=== PATIENT | female | born 1960 | race American Indian/Alaskan Native ===

== ENCOUNTER 2020-07-05 06:18 | Outpatient (REF) | payer OTHER, SELFPAY ==
[2020-07-05 12:16] LABS: Alanine Aminotransferase < 6 U/L (0-31); Aspartate Amino Transferase 16 U/L (5-31); Cholesterol 227 mg/dL; HDL Cholesterol 93 mg/dL; LDL Cholesterol Calculated 121 mg/dl; Triglycerides 67 mg/dL
[2020-07-05 12:19] LABS: Vitamin D 25-OH Total 24.2 ng/mL (>30)
== END 2020-07-05 06:19 | disposition home or self-care (01) ==
LOC: HO.HMGCLDS 06:18
PROVIDERS: PCP Internal Medicine; Visit Provider Internal Medicine
DX: E78.5 Hyperlipidemia, unspecified (principal); Z78.0 Asymptomatic menopausal state
CPT/HCPCS: 36415; 80061; 82306; 84450; 84460

== ENCOUNTER 2021-07-12 14:30 | Outpatient (RCR) | payer OTHER, SELFPAY ==
[2021-07-10 12:50] VITALS: BP 108/58; PULSE 78; O2SAT 95
--- NOTE | 2021-07-10 13:58 | MHC.PT.EP ---
[facility] [place] Office [place] Office [place] Office [address] Jorge Luis Laguerre [address] [phone] F: [phone] F: [phone] F: [phone] F: [phone] Physical Therapy Plan of Care Date of Evaluation: Date of Surgery: Diagnosis: This is a 60 yo female presenting to skilled PT with a script for vertigo Assessment: This is a 60 yo female presenting to skilled PT with a script for vertigo. Patient reports that her symptoms started 2 years ago, she went to the ER was given medication and symptoms resolved. Then she had room spinning symptoms back in May but cancelled eval as she was feeling better (also went to ER and had medication again). She reports that she had symptoms that began again 3 days. She has been taking meclizine. She reports that she has ringing and sees spots when she wakes up in the middle of the night (states that she gets up slowly). Examination shows normal oculomotor tests except for horizontal saccades, ? + VOR, (-) VBI B. She demos WFL cervical AROM. She was ? (+) for BPPV with niall-hallpike and R kash maneuver which was improved s/p tx (time to reduce symptoms improved). She did not have a definite nystagmus that was obvious to the naked eye but due to symptoms patient was instructed in kash maneuver. PT did not have enough time to assess balance at eval but plans to do so next session. S/S consistent with R PC BPPV and would benefit from PT 2x/wk for 4wks to address impairments, implement HEP and optimize functional mobility. Frequency and Duration: The patient will be seen 2x/wk for 4wks Short Term Goals: Penitentiary Goals: I in HEP No nystagmus or symptoms in any testing positions No LOB noted and normal scores on balance tests Return to work in full Treatment Plan: Modalities to reduce pain, spasms and effusion. Manual therapy to restore motion and function. Therapeutic exercise to improve strength and flexibility. Neuromuscular re-education for posture and balance. Therapeutic activities to return to functional activities of daily living. Electronically signed by: Krystle Dubuc, PT Please sign and return to therapist. Thank you for your referral.
--- NOTE | 2021-08-10 09:22 | MHC.PT.DC ---
[facility] [place] Office [place] Office [place] Office [address] Jorge Luis Laguerre [address] [phone] F: [phone] F: [phone] F: [phone] F: [phone] Physical Therapy Discharge Report Diagnosis: This is a 60 yo female presenting to skilled PT with a script for vertigo Date of Surgery: Date of Evaluation: 07/10/21 Date of Discharge: 08/10/21 Treatments to Date: 2 Cancellations to Date: 0 No Shows to Date: 0 Discharge Status: Achieved Goals Improved Function Discharge Summary: Patient was negative in all 6 canals for nystagmus and symptoms. Educated on holding chart open for 30 days and then DC. Educated her to call our office if patient's symptoms returned. Patient with good understanding of vestibular symptoms and PT POC. DC at this time after 30 day hold. Electronically signed by: Krystle Mcdonough PT Please sign and return to therapist. Thank you for your referral.
== END 2021-08-10 09:22 | disposition home or self-care (01) ==
LOC: HO.PTCHIC 14:30
PROVIDERS: PCP Internal Medicine; Visit Provider Internal Medicine
DX: R42 Dizziness and giddiness (principal)
CPT/HCPCS: 95992; 97140; 97162

== ENCOUNTER 2021-08-07 09:05 | Outpatient (REF) | payer OTHER, SELFPAY ==
[2021-08-07 11:43] LABS: MANUAL DIFF FLAG NO
[2021-08-07 12:10] LABS: Basophils Percent Auto 0.7 % (0-2); Eosinophils Absolute Auto 0.1 X10*3/uL (0.0-0.4); Eosinophils Percent Auto 1.1 % (0-4); Hematocrit 39.9 % (37.0-47.0); Hemoglobin 12.5 g/dl (12.0-16.0); Imm Gran Abs Auto 0.02 X10*3/uL (0.00-0.03); Imm Gran Pct Auto 0.5 % (0.0-0.4); Lymphocytes Absolute Auto 1.4 X10*3/uL (1.2-4.9); Lymphocytes Percent Auto 31.9 % (20-40); Mean Corpuscular HGB Conc 31.3 g/dl (31.0-35.0); Mean Corpuscular Hemoglobin 28.7 pg (27.0-33.0); Mean Corpuscular Volume 91.5 fL (80.0-98.0); Mean Platelet Volume 10.6 fL (9.4-12.3); Monocytes Absolute Auto 0.3 X10*3/uL (0.1-1.2); Monocytes Percent Auto 6.7 % (2-11); Neutrophils Absolute Auto 2.6 x10*3/uL (2.0-8.3); Neutrophils Percent Auto 59.1 % (45-73); Platelet Count 176 X10*3/uL (160-400); Red Blood Count 4.36 X10*6/uL (4.20-5.50); Red Cell Distribution Width 12.4 % (11.0-16.0); White Blood Count 4.4 X10*3/uL (4.8-10.8)
[2021-08-07 12:20] LABS: Alanine Aminotransferase 7 U/L (0-31); Anion Gap 10 (12-20); Aspartate Amino Transferase 17 U/L (5-31); Blood Urea Nitrogen 12 mg/dL (9-16); Calcium 9.3 mg/dL (8.4-10.2); Carbon Dioxide 31 mmol/L (22-29); Chloride 104 mmol/L (96-108); Cholesterol 281 mg/dL; Estimated Glomerular Filt Rate > 60; Glucose Fasting 83 mg/dL (60-99); HDL Cholesterol 77 mg/dL; Iron 75 mcg/dL (30-160); LDL Cholesterol Calculated 188 mg/dl; Percent Iron Saturation 22 % (15-50); Potassium 4.6 mmol/L (3.3-5.1); Sodium 140 mmol/L (135-145); Total Iron Binding Capacity 342 mcg/dL (228-428); Triglycerides 84 mg/dL; Unsaturated Iron Binding 267 ug/dL
[2021-08-07 12:31] LABS: Vitamin D 25-OH Total 34.7 ng/mL (>30)
[2021-08-07 12:38] LABS: Folate 7.8 ng/mL (> or = 4.0); Vitamin B12 233 pg/mL (200-900)
== END 2021-08-07 09:06 | disposition home or self-care (01) ==
LOC: HO.HMGCLDS 09:05
PROVIDERS: PCP Internal Medicine; Visit Provider Internal Medicine
DX: D64.9 Anemia, unspecified (principal); E55.9 Vitamin D deficiency, unspecified; E78.5 Hyperlipidemia, unspecified; R42 Dizziness and giddiness
CPT/HCPCS: 36415; 80048; 80061; 82306; 82607; 82746; 83540; 84450; 84460; 85025

== ENCOUNTER 2021-09-24 16:30 | Outpatient (REF) | payer OTHER, SELFPAY ==
[2021-09-26 12:58] LABS: H Pylori Breath Test Positive (Negative)
== END 2021-09-24 16:31 | disposition home or self-care (01) ==
LOC: HO.LNP 16:30
PROVIDERS: Visit Provider Nurse Practitioner Family
DX: K21.9 Gastro-esophageal reflux disease without esophagitis (principal); K44.9 Diaphragmatic hernia without obstruction or gangrene
CPT/HCPCS: 83013

== ENCOUNTER 2021-11-17 06:53 | Outpatient (REF) | payer OTHER, SELFPAY ==
[2021-11-17 11:42] LABS: Alanine Aminotransferase 6 U/L (0-31); Aspartate Amino Transferase 17 U/L (5-31); Cholesterol 205 mg/dL; HDL Cholesterol 82 mg/dL; LDL Cholesterol Calculated 110 mg/dl; Triglycerides 67 mg/dL
== END 2021-11-17 06:54 | disposition home or self-care (01) ==
LOC: HO.HMGCLDS 06:53
PROVIDERS: PCP Internal Medicine; Visit Provider Internal Medicine
DX: E78.5 Hyperlipidemia, unspecified (principal)
CPT/HCPCS: 36415; 80061; 82550; 84450; 84460

== ENCOUNTER 2021-12-14 14:00 | Outpatient (RCR) | payer OTHER, SELFPAY ==
[2021-12-06 15:00] VITALS: BP 102/58; PULSE 68
--- NOTE | 2021-12-06 16:03 | MHC.PT.EP ---
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 She describes dizziness as 'wave of dizziness' and then the room-spins, she will have vomiting/nausea. It lasts a minute but sometimes longer. She cannot associate the dizziness with any activity or position. She is moving slowly and is feeling depressed regarding the dizziness episodes. Examination shows normal oculomotor tests, (-) VBI B, grossly WFL cervical AROM, normal static balance (mild sway with eyes closed in narrow [place]), and (+) R hallpike with nystagmus and sx indicated R PC BPPV. She was treated with kash maneuver x 2 rolls which and (-) on retest. S/S consistent with R PC BPPV and would benefit from PT 2x/wk for 4wks to address impairments, implement HEP and optimize functional mobility. Pt would like to call and return if she has sx again rather than booking more appointments due to work schedule. Will keep chart open for 30 days in case of recurrence and educated pt on safety, recalibration, and vestibular system Frequency and Duration: The patient will be seen 2x/week for 4 weeks Short Term Goals: Retirement Goals: Pt will be (-) for nystagmus of reports of vertigo in all diagnostic directions B to resolutions of BPPV in 4 weeks Tolerate position changes without complaints vertigo to improve safety and return to pre-onset level Pt to be able to functionally move in all planes without provocation of dizziness and return to PLOF in 4 weeks Pt to be educated on sx and indications to return to therapy when needed in 4 weeks Treatment Plan: Modalities to reduce pain, spasms and effusion. Manual therapy to restore motion and function. Therapeutic exercise to improve strength and flexibility. Neuromuscular re-education for posture and balance. Therapeutic activities to return to functional activities of daily living. Electronically signed by: Judith Pereira PT Please sign and return to therapist. Thank you for your referral.
--- NOTE | 2022-02-13 10:12 | MHC.PT.DC ---
[facility] [place] Office [place] Office [place] Office [address] Jorge Luis Laguerre [address] [phone] F: [phone] F: [phone] F: [phone] F: [phone] Physical Therapy Discharge Report Diagnosis: dizziness and giddiness Date of Surgery: Date of Evaluation: 12/06/21 Date of Discharge: 12/22/21 Treatments to Date: 4 Cancellations to Date: 0 No Shows to Date: 0 Discharge Status: Discharge Summary: remains negative for BPPV and is independent with vor activities Electronically signed by: MARSHAL YARBROUGH PT, DPT Please sign and return to therapist. Thank you for your referral.
== END 2022-02-13 10:13 | disposition home or self-care (01) ==
LOC: HO.PT 14:00
PROVIDERS: PCP Internal Medicine; Visit Provider Internal Medicine
DX: R42 Dizziness and giddiness (principal)
CPT/HCPCS: 95992; 97112; 97161

== ENCOUNTER 2022-05-14 06:23 | Outpatient (REF) | payer OTHER, SELFPAY ==
[2022-05-14 11:31] LABS: MANUAL DIFF FLAG NO
[2022-05-14 11:51] LABS: Eosinophils Absolute Auto 0.1 X10*3/uL (0.0-0.4); Eosinophils Percent Auto 1.7 % (0-4); Hematocrit 38.6 % (37.0-47.0); Hemoglobin 12.2 g/dl (12.0-16.0); Imm Gran Abs Auto 0.01 X10*3/uL (0.00-0.03); Imm Gran Pct Auto 0.2 % (0.0-0.4); Lymphocytes Absolute Auto 1.7 X10*3/uL (1.2-4.9); Lymphocytes Percent Auto 40.4 % (20-40); Mean Corpuscular HGB Conc 31.6 g/dl (31.0-35.0); Mean Corpuscular Volume 91.9 fL (80.0-98.0); Mean Platelet Volume 11.3 fL (9.4-12.3); Monocytes Absolute Auto 0.3 X10*3/uL (0.1-1.2); Monocytes Percent Auto 6.7 % (2-11); Neutrophils Absolute Auto 2.1 x10*3/uL (2.0-8.3); Platelet Count 157 X10*3/uL (160-400); Red Cell Distribution Width 12.4 % (11.0-16.0); White Blood Count 4.2 X10*3/uL (4.8-10.8)
[2022-05-14 12:16] LABS: Alanine Aminotransferase < 6 U/L (0-31); Aspartate Amino Transferase 19 U/L (5-31); Cholesterol 217 mg/dL; HDL Cholesterol 85 mg/dL; LDL Cholesterol Calculated 118 mg/dl; Triglycerides 73 mg/dL
[2022-05-14 12:43] LABS: Vitamin D 25-OH Total 32.4 ng/mL (>30)
== END 2022-05-14 06:24 | disposition home or self-care (01) ==
LOC: HO.HMGCLDS 06:23
PROVIDERS: PCP Internal Medicine; Visit Provider Internal Medicine
DX: E78.5 Hyperlipidemia, unspecified (principal); K21.9 Gastro-esophageal reflux disease without esophagitis; K44.9 Diaphragmatic hernia without obstruction or gangrene; R42 Dizziness and giddiness; Z78.0 Asymptomatic menopausal state
CPT/HCPCS: 36415; 80061; 82306; 84450; 84460; 85025

== ENCOUNTER 2023-08-20 11:31 | Outpatient (AMB) | payer OTHER, SELFPAY ==
--- NOTE | 2023-08-20 11:46 | MHC.PC.OV ---
Vital Signs 08/20/23 11:50 Height 5 ft Weight 112 lb BMI 21.9 BP 90/62 Blood Pressure Location Rt brachial Position Sitting Pulse 62 Pulse Source Pulse Oximeter Pulse Oximetry (%) 99 Oxygen Delivery Method Room Air Intake Visit Reasons: Annual PE - see comments Intake Note: Pt is here today for her PE: Declined Mammogram,papsmear and colonoscopy Allergies atorvastatin Adverse Reaction (Unknown, Verified 08/20/23 12:16) muscle pain Medication List - Last Reconciled 08/20/23 by Anne-Marie Daniel MD meclizine 25 mg PO BID PRN rosuvastatin 5 mg PO Q OTHER DAY Tobacco use date assessed: 08/20/23 Dental Screening Dental Screen Date: 08/20/23 Did you have a dental visit in the last 12 months?: Yes Did you have a dental problem in the last 6 months where you did not have access to dental care?: Yes Was dental information given to patient?: Patient has dentist HPI Annual PE - see comments HPI Details 62-year-old lady with anxiety disorder, dyslipidemia, history of GERD, here today for physical exam. She has been feeling well, however she stopped taking her sertraline as it was making her feel very dizzy, and also has not started taking any lorazepam. Still having recurrent episodes of anxiety but occurring infrequently and states that she is usually able to control it with behavioral techniques. Like to see if she can be placed on a different medication for her anxiety attacks Has hyperlipidemia currently stable and controlled on rosuvastatin takes 5 mg tablets every other day. She is overdue for her cervical cancer screening, breast cancer screening and colon cancer screening but does not want to get mammogram, Pap smear or colonoscopy testing. She also does not believe in vaccines, has not had any [facility] Medical History Anemia Intermittent lightheadedness Mammogram declined Papanicolaou smear declined Generalized anxiety disorder Hiatal hernia with GERD Anal fissure Dyslipidemia Surgical History S/P anal fissurectomy Family History Father Hx of coronary artery disease Hx of hyperlipidemia Mother Hx of hyperlipidemia Hx of thyroid cancer Brother Hx of hyperlipidemia Social History Housing: House Alcohol intake: current Patient Tobacco Use Status: Former Tobacco user Years Smoked: 25yrs e-Cigarette/Vaping Use: Never Used service: No Current occupational status: employed Cognitive needs: No Hearing needs: No Vision needs: No Female Reproductive History Menstrual Menopause type: natural Questionnaire PHQ-9 Over the last 2 weeks, how often have you been bothered by any of the following problems? 1. Little interest or pleasure in doing things: not at all 2. Feeling down, depressed, or hopeless: not at all 3. Trouble falling or staying asleep, or sleeping too much: not at all 4. Feeling tired or having little energy: not at all 5. Poor appetite or overeating: not at all 6. Feeling bad about yourself - or that you are a failure or have let yourself or your family down: not at all 7. Trouble concentrating on things, such as reading the newspaper or watching television: not at all 8. Moving or speaking so slowly that other people could have noticed. Or the opposite - being so fidgety or restless that you have been moving around a lot more than usual: not at all 9. Thoughts that you would be better off or of hurting yourself in some way: not at all Total score: 0 Depression Screening Interpretation: Negative Depression Screening Done: Yes 15079 - PHQ-9 Billing: Yes Source: Developed by Drs. Johny Bryan, Melissa Ayala, Rodger Hunter and colleagues, with an educational azalea from [employer]. Thrive Questionnaire Date Thrive assessed: 08/20/23 I am a: Patient What is your living situation today?: I have a steady place to live Within the past 12 months, did the food you bought not last and you didn't have the money to get more?: Never true Within the past 12 months, did you worry whether your food would run out before you got money to buy more?: Never true Do you have trouble paying for medicines?: No Do you have trouble getting transportation to medical appointments?: No Do you have trouble paying your heating and electricity bill?: No Do you have trouble taking care of your child, family member or friend?: No Do you have trouble with day-to-day activities such as bathing, preparing meals, shopping, managing finances, etc.?: No Are you currently unemployed and looking for a job?: No Are you interested in more education?: No THRIVE Score: 0 AUDIT C Alcohol Use Questionnaire (AUDIT-C) 1. How often do you have a drink containing alcohol?: Monthly or less 2. How many drinks containing alcohol do you have on a typical day when you are drinking?: 1 or 2 3. How often do you have six or more drinks on one occasion?: Never Total Score: 1 PRINCE-7 AMB Questionnaire PRINCE-7 Date PRINCE - 7 assessed: 08/20/23 Feeling nervous, anxious, or on edge: 1 = Several days Not being able to stop or control worryin = Not at all Worrying too much about different things: 1 = Several days Trouble relaxin = Not at all Being so restless that it is hard to sit still: 0 = Not at all Becoming easily annoyed or irritable: 0 = Not at all Feeling afraid as if something awful might happen: 0 = Not at all Total PRINCE-7 score (0-4 normal; 5-9 mild; 10-14 moderate; 15-21 severe): 2 Source: Developed by Drs. Johny Bryan, Melissa Ayala, Rodger Hunter and colleagues, with an educational azalea from [employer]. Review of Systems Const Denies body aches, Denies fatigue, Denies fever(s), Denies headache(s), Denies poor appetite and Denies weakness Eyes Denies change in vision ENT Reports Normal hearing present, Denies dizziness, Denies headache(s), Denies nasal congestion and Denies tinnitus Card Reports no additional complaints Resp Reports no additional complaints GI Denies change in bowel habits, Reports heartburn (Occasional), Denies nausea and Denies vomiting Reports no additional complaints Musc Reports no additional complaints Skin/Breast Denies breast swelling, Denies breast pain, Denies breast mass, Denies lesions and Denies rash Neuro Reports no additional complaints, Reports Normal hearing present, Denies dizziness, Denies headache(s), Denies focal weakness and Denies weakness Psych Reports no additional complaints Endo Reports no additional complaints and Denies fatigue Kuldip/Lymph Reports no additional complaints Aller/Immun Reports no additional complaints Physical exam (Primary Care) Vital Signs: Last Vital Signs Pulse 62 08/20/23 11:50 BP 90/62 08/20/23 11:50 Pulse Ox 99 08/20/23 11:50 Oxygen Delivery Method Room Air 08/20/23 11:50 BMI result Body Mass Index 21.9 Tobacco/Smoking Status: Tobacco use Status Tobacco use date assessed 08/20/23 08/20/23 11:50 Patient Tobacco Use Status Former Tobacco user 08/20/23 11:47 e-Cigarette/Vaping Use Never Used 08/20/23 11:47 Depression Screening Interpretation: Negative Thrive Assessment: Date of Thrive Assessment Date Thrive assessed 05/22/21 08/20/23 11:47 Advance Care Planning discussion: Completed/Scanned Date of discussion: 08/20/23 Who was present: Patient Forms completed: Health Care Proxy Time spent: 16-45 minutes Actual minutes spent: 16 Const Other: Alert oriented x3, no acute cardiorespiratory distress, normal gait Nutritional Appearance: average body habitus HENKS Head: Yes normocephalic Ears: TM's normal bilaterally and EAC's normal General nose exam: Normal external nose present and No nasal discharge present Face and sinus: Yes face symmetric Mouth: oropharynx normal and moist mucous membranes Eyes General: appearance normal, both eyes and all related structures Neck Neck: Yes full ROM, Yes no lymphadenopathy and Yes supple Thyroid: Thyroid normal Chest Breast/axilla inspection: normal inspection of the breasts Breast/axilla palpation: normal palpation of the breasts and normal palpation of the axillae Resp Auscultation: clear to auscultation bilaterally, no rales and no wheezes Cardio Other: S1-S2 present regular rate and rhythm GI Inspection: Yes normal to inspection Palpation (GI): Soft to palpation, nontender, no guarding and no masses Auscultation: normal bowel sounds Other: Patient Declined exam General: Yes no CVA tenderness and Yes deferred (Patient declined exam) Back/Spine/Pelvis Back: no CVA tenderness and No back tenderness Skin General skin exam: no rashes or lesions noted Neuro General: gait normal, tone normal, moves all extremities, Normal light touch and pain sensation, no focal motor deficits and CN's II-XI intact bilaterally Cranial nerves: Yes Normal hearing present Extrem General: Yes full ROM, Yes no joint enlargement, Yes no pedal edema and Yes normal gait Psych Appearance: grossly normal and well kempt Mental Status: mental status grossly normal Speech and movement: Normal speech and movement present Affect: normal affect Assessment and Plan Assessment & Plan (1) Annual visit for general adult medical examination with abnormal findings: Code(s): Z00.01 - Encounter for general adult medical examination with abnormal findings Plan: Will check appropriate labs. Recommended dental visit every 6 months and regular eye exams, at least every 2 years. Take adequate calcium in diet and vitamin-D 3 at 2000 IU per cap once a day, in addition to weight-bearing exercises to help maintain good muscle tone and weight control. Instructed to do self-breast exam, and recommended to get yearly mammogram, and cervical cancer screening at least every 3-5 years and screening colonoscopy. Patient however declined all testing.. She also does not want to get any vaccines (2) Dyslipidemia: Code(s): E78.5 - Hyperlipidemia, unspecified Plan: Continue rosuvastatin, 5 mg every other day, fasting lipids panel ordered (3) Hiatal hernia with GERD: Comment: Seen on EGD in 2017 Code(s): K21.9 - Gastro-esophageal reflux disease without esophagitis; K44.9 - Diaphragmatic hernia without obstruction or gangrene Plan: Patient does not want to take anything every day, advised to try taking mdax-ics-qrtzsro Tums or Pepcid AC as needed for heartburn symptoms (4) Generalized anxiety disorder: Code(s): F41.1 - Generalized anxiety disorder Plan: Patient stop taking sertraline and lorazepam, will try her on escitalopram 5 mg per tablet taken once a day, see me back for follow-up in 4 weeks, declined referral for counseling (5) Papanicolaou smear declined: Code(s): Z53.20 - Procedure and treatment not carried out because of patient's decision for unspecified reasons Plan: Patient does not want to get a Pap smear (6) Mammogram declined: Code(s): Z53.20 - Procedure and treatment not carried out because of patient's decision for unspecified reasons Plan: Declined referral for mammogram. (7) Advanced directives, counseling/discussion: Code(s): Z71.89 - Other specified counseling Plan: Initiated the conversation about Advanced Directives. Advanced Directives help patients prepare for current and future decisions about their medical treatment and place of care. Discussed with patient that it is a process where a patients current condition and prognosis are reviewed, their wishes for information regarding their illness are elicited, and likely medical dilemmas are presented and options discussed. Healthcare proxy form completed today. The form can be amended as needed, reviewed yearly and make changes as needed Orders: Orders Lipid Panel Today E78.5 - Hyperlipidemia, unspecified, F41.1 - Generalized anxiety disorder, K21.9 - Gastro-esophageal reflux disease without esophagitis, K44.9 - Diaphragmatic hernia without obstruction or gangrene, Z00.01 - Encounter for general adult medical examination with abnormal findings, Z53.20 - Procedure and treatment not carried out because of patient's decision for unspecified reasons Alanine Aminotransferase Today E78.5 - Hyperlipidemia, unspecified, F41.1 - Generalized anxiety disorder, K21.9 - Gastro-esophageal reflux disease without esophagitis, K44.9 - Diaphragmatic hernia without obstruction or gangrene, Z00.01 - Encounter for general adult medical examination with abnormal findings, Z53.20 - Procedure and treatment not carried out because of patient's decision for unspecified reasons Aspartate Amino Transferase Today E78.5 - Hyperlipidemia, unspecified, F41.1 - Generalized anxiety disorder, K21.9 - Gastro-esophageal reflux disease without esophagitis, K44.9 - Diaphragmatic hernia without obstruction or gangrene, Z00.01 - Encounter for general adult medical examination with abnormal findings, Z53.20 - Procedure and treatment not carried out because of patient's decision for unspecified reasons Basic Metabolic Panel Fasting Today E78.5 - Hyperlipidemia, unspecified, F41.1 - Generalized anxiety disorder, K21.9 - Gastro-esophageal reflux disease without esophagitis, K44.9 - Diaphragmatic hernia without obstruction or gangrene, Z00.01 - Encounter for general adult medical examination with abnormal findings, Z53.20 - Procedure and treatment not carried out because of patient's decision for unspecified reasons Vitamin D 25-OH Total Today E78.5 - Hyperlipidemia, unspecified, F41.1 - Generalized anxiety disorder, K21.9 - Gastro-esophageal reflux disease without esophagitis, K44.9 - Diaphragmatic hernia without obstruction or gangrene, Z00.01 - Encounter for general adult medical examination with abnormal findings, Z53.20 - Procedure and treatment not carried out because of patient's decision for unspecified reasons Complete Blood Count Auto Diff Today D72.819 - Decreased white blood cell count, unspecified, Z00.01 - Encounter for general adult medical examination with abnormal findings Medications: New escitalopram oxalate 5 mg PO DAILY 30 tabs 0RF Review Declined Pap Smear: 08/20/23 Patient declined Colonoscopy: 08/20/23 Patient declined Colon Cancer Screen Lab: 08/20/23 Patient declined Pneumococcal Vaccine: 08/20/23 Flu Vaccine not done: patient reason Declined TDap/Td: 08/20/23 Coding Level of Care Code Est Pt Prev Care 40-64y(75794) Diagnoses Annual visit for general adult medical examination with abnormal findings Z00.01 Dyslipidemia E78.5 Hiatal hernia with GERD K21.9; K44.9 Generalized anxiety disorder F41.1 Papanicolaou smear declined Z53.20 Mammogram declined Z53.20 Advanced directives, counseling/discussion Z71.89 Additional Codes Vital Signs *Quality* - Advance Care Planning discussion: Completed/Scanned ([id number]) Vital Signs *Quality* - Time spent: 16-45 minutes ([id number])
[2023-08-20 11:50] VITALS: BP 90/62; PULSE 62; O2SAT 99; BMI 21.9
== END 2023-08-20 12:37 | disposition home or self-care (01) ==
PROVIDERS: PCP Internal Medicine; Visit Provider Internal Medicine
DX: Z00.00 Encounter for general adult medical examination without abnormal findings (principal); E78.5 Hyperlipidemia, unspecified; K21.9 Gastro-esophageal reflux disease without esophagitis; K44.9 Diaphragmatic hernia without obstruction or gangrene; F41.1 Generalized anxiety disorder; Z53.20 Procedure and treatment not carried out because of patient's decision for unspecified reasons
CPT/HCPCS: 1123F; 99396; 99497

== ENCOUNTER 2023-08-21 06:10 | Outpatient (REF) | payer OTHER, SELFPAY ==
[2023-08-21 11:40] LABS: MANUAL DIFF FLAG NO
[2023-08-21 11:42] LABS: Eosinophils Absolute Auto 0.1 X10*3/uL (0.0-0.4); Eosinophils Percent Auto 2.3 % (0-4); Hematocrit 37.3 % (37.0-47.0); Imm Gran Abs Auto 0.01 X10*3/uL (0.00-0.03); Imm Gran Pct Auto 0.3 % (0.0-0.4); Lymphocytes Absolute Auto 1.6 X10*3/uL (1.2-4.9); Lymphocytes Percent Auto 42.8 % (20-40); Mean Corpuscular HGB Conc 32.2 g/dl (31.0-35.0); Mean Corpuscular Hemoglobin 29.1 pg (27.0-33.0); Mean Corpuscular Volume 90.5 fL (80.0-98.0); Monocytes Absolute Auto 0.3 X10*3/uL (0.1-1.2); Monocytes Percent Auto 7.8 % (2-11); Neutrophils Absolute Auto 1.8 x10*3/uL (2.0-8.3); Neutrophils Percent Auto 45.8 % (45-73); Platelet Count 171 X10*3/uL (160-400); Red Blood Count 4.12 X10*6/uL (4.20-5.50); Red Cell Distribution Width 12.4 % (11.0-16.0); White Blood Count 3.8 X10*3/uL (4.8-10.8)
[2023-08-21 12:16] LABS: Alanine Aminotransferase 5 U/L (0-31); Anion Gap 13 (12-20); Aspartate Amino Transferase 19 U/L (5-31); Blood Urea Nitrogen 12 mg/dL (9-16); Calcium 9.9 mg/dL (8.4-10.2); Carbon Dioxide 28 mmol/L (22-29); Chloride 105 mmol/L (96-108); Cholesterol 198 mg/dL (<200); Estimated Glomerular Filt Rate > 60; Glucose Fasting 88 mg/dL (60-99); HDL Cholesterol 82 mg/dL (>40); LDL Cholesterol Calculated 106 mg/dL (<100); Potassium 4.5 mmol/L (3.3-5.1); Sodium 141 mmol/L (135-145); Triglycerides 50 mg/dL (<150)
[2023-08-21 12:36] LABS: Vitamin D 25-OH Total 38.5 ng/mL (>30)
== END 2023-08-21 06:11 | disposition home or self-care (01) ==
LOC: HO.HMGCLDS 06:10
PROVIDERS: PCP Internal Medicine; Visit Provider Internal Medicine
DX: Z00.01 Encounter for general adult medical examination with abnormal findings (principal); E78.5 Hyperlipidemia, unspecified; F41.1 Generalized anxiety disorder; K21.9 Gastro-esophageal reflux disease without esophagitis; K44.9 Diaphragmatic hernia without obstruction or gangrene; Z53.20 Procedure and treatment not carried out because of patient's decision for unspecified reasons; D72.819 Decreased white blood cell count, unspecified
CPT/HCPCS: 36415; 80048; 80061; 82306; 84450; 84460; 85025

== ENCOUNTER 2023-08-27 13:49 | Emergency (ER) | payer OTHER, SELFPAY ==
--- NOTE | ~2023-08-27 | XR_ITS ---
EXAMINATION: XR CHEST CLINICAL INFORMATION: Palpitation. Pain. COMPARISON: None available. TECHNIQUE: 2 views of the chest were obtained. FINDINGS: No significant abnormality is noted involving the heart, lungs, mediastinum, bony thorax or soft tissues. XR/XR chest 2V IMPRESSION: Unremarkable examination.
[2023-08-27 14:24] VITALS: BP 102/63; PULSE 76; RESP 16; TEMP 36.2; O2SAT 100; BMI 21.6
--- NOTE | 2023-08-27 14:24 | ED_ITS ---
HPI - General Adult General Chief complaint: General Medical Stated complaint: pain all over Time Seen by Provider: 08/27/23 15:17 Source: patient Mode of arrival: ambulatory Limitations: no limitations History of Present Illness ED Provider: Belen Rosado PA-C HPI narrative: Patient is a 62 year old assigned female at with a history of PRINCE, GERD, and dyslipidemia presenting to the emergency department today with shooting pain all over and heart palpitations. Patient states that over the last 3 days she has had shooting pains all over as well as epigastric pain and palpitations. Patient states that she use to be on Zoloft but it caused her GERD to get much worse so they tapered her off of it. Patient states that her PCP started her on a new anxiety medication but she never ended up taking it. Patient admits to feeling more anxious as of late. Patient denies any dizziness, lightheadedness, nausea, vomiting, fever, chills, blurry vision, double vision, loss of vision, chest pain, difficulty breathing, shortness of breath, back pain, night sweats, pain with urination, increased urinary frequency, increased urinary urgency, blood in her urine or stool, syncope or a near syncopal episode, recent trauma or falls, bowel incontinence, bladder incontinence, or any other complaints at this time. Onset (ago): day(s) (3) Relieving factors: none Exacerbating factors: none Associated symptoms: denies other symptoms Treatments prior to arrival: none Related Data Previous Rx's ?Medication ?Instructions ?Recorded meclizine 25 mg tablet 25 mg PO BID PRN dizziness #20 tabs 08/06/23 rosuvastatin 5 mg tablet 5 mg PO Q OTHER DAY #45 tabs 08/06/23 escitalopram oxalate 5 mg tablet 5 mg PO DAILY #30 tabs 08/20/23 cefuroxime axetil 250 mg tablet 250 mg PO BID 7 days #14 tabs 08/27/23 Allergies Allergy/AdvReac Type Severity Reaction Status Date / Time atorvastatin AdvReac Unknown muscle pain Verified 08/27/23 14:25 Review of Systems 2 Constitutional: Constitutional: Reports no additional constitutional complaints, Denies chills, Denies fever(s) and Denies night sweats Eyes: Eyes: Reports no additional eye complaints, Denies blurry vision, Denies change in vision, Denies diplopia, Denies eye discharge, Denies loss of vision and Denies eye pain ENT: Denies dizziness Cardiovascular: Cardiovascular: Reports no additional cardiovascular complaints, Denies chest pain, Denies lightheadedness, Denies Loss of Consciousness and Denies dyspnea Respiratory: Respiratory: Reports no additional respiratory complaints and Denies dyspnea Gastrointestinal: Gastrointestinal: Reports no additional gastrointestinal complaints, Denies abdominal pain, Denies melena, Denies hematochezia, Denies change in bowel habits and Denies change in stool character Genitourinary: Genitourinary: Denies hematuria, Denies urinary frequency, Denies dysuria, Denies urinary incontinence, Denies urinary hesitancy and Denies urinary urgency Musculoskeletal: Musculoskeletal: Reports no additional musculoskeletal complaints, Denies numbness and Denies tingling Neurologic: Denies dizziness, Denies loss of vision, Denies numbness and Denies tingling Psychiatric: Psychiatric: Reports anxiety Endocrine: Endocrine: Reports no additional endocrine complaints Hematologic/Lymphatic: Hematologic/Lymphatic: Reports no additional hematologic/lymphatic complaints Allergic/Immunologic: Allergic/Immunologic: Reports no additional allergic/immunologic complaints [facility] Past Medical History Attestation statement: The following information was validated with the patient. Source: old records reviewed and nursing notes reviewed Medical History Anemia Intermittent lightheadedness Mammogram declined Papanicolaou smear declined Generalized anxiety disorder Hiatal hernia with GERD Anal fissure Dyslipidemia Surgical History S/P anal fissurectomy Family History Family History Father Hx of coronary artery disease Hx of hyperlipidemia Mother Hx of hyperlipidemia Hx of thyroid cancer Brother Hx of hyperlipidemia Social History Social History Housing: House Alcohol intake: current Patient Tobacco Use Status: Former Tobacco user Years Smoked: 25yrs e-Cigarette/Vaping Use: Never Used Advance Directives: No Advance Directives Information Provided: No service: No Current occupational status: employed Cognitive needs: No Hearing needs: No Vision needs: No Physical Exam ED Vital Signs: Vital Signs - 24 hr 08/27/23 14:24 Temperature 97.1 F Pulse Rate 76 Respiratory Rate 16 Blood Pressure 102/63 Pulse Oximetry 100 Oxygen Delivery Method Room Air BMI result Body Mass Index 21.6 Const General: cooperative, no acute distress, alert and awake Nutritional Appearance: well nourished Orientation/consciousness: patient oriented x3 Limitations: no limitations HENMT Head: Yes normal to inspection and Yes atraumatic Ears: hearing grossly normal bilaterally and external ears normal General nose exam: Normal external nose present, no nasal discharge noted and no epistaxis Face and sinus: Yes normal facial exam, No abrasion and No laceration Mouth: Normal oral and palatal mucosa present, no drooling and no muffled voice Eyes General: appearance normal, both eyes and all related structures Periorbital: periorbital findings normal Eyelids: Yes eyelids normal Conjunctivae: conjunctivae normal Pupils: Equal, round and reactive pupils present EOM: EOMs intact bilaterally Neck Neck: Yes normal visual inspection, Yes full ROM and Yes no lymphadenopathy Chest Chest palpation & inspection: normal inspection of the chest Resp Effort & Inspection: normal respiratory effort and able to speak in complete sentences GI Inspection: Yes normal to inspection Neuro General: patient oriented x3 and moves all extremities Cranial nerves: Yes Equal, round and reactive pupils present Cognition (Neuro): normal cognition Extrem General: Yes normal to inspection, Yes full ROM and Yes capillary refill normal Psych Appearance: grossly normal Mental Status: mental status grossly normal Affect: Anxious affect present Attitude: cooperative Thought process: Normal thought process present Thought content: Normal thought content present Insight: Good insight present (Psych) Course Course Course Narrative: This is an RME done by ANETA Cárdenas: Additional HPI, ROS, PE not included below will be deferred to primary provider. 62 year old female presents w/ full body shooting pain burning smell , palpitations, and stomach pains X a week or so. Reports alot of acid in her stomach. Trying otc meds no relief. No vomiting, diarrhea, fevers, chills. Appearance: Alert.? Oriented X3.? No acute cardiopulmonary distress distress.? Head: Normocephalic, atraumatic, no step-offs or deformities Neck: Normal inspection.? Neck supple.? CVS: Pulses normal.? Respiratory: No respiratory distress.? Abdomen: Soft and nontender.? Skin: ? Normal skin color. Extremities: 5/5 strength to bilateral upper and lower extremities Neuro: Oriented X 3.? No motor deficit.? No sensory deficit. Medications Administered Discontinued Medications Generic Name Dose Route Start Last Admin Trade Name Ernesto PRN Reason Stop Dose Admin Lorazepam 0.5 mg 08/27/23 16:44 08/27/23 17:00 Lorazepam 0.5 Mg Tablet PO 08/27/23 16:45 Not Given ONCE ONE Medical Decision Making Medical Decision Making [facility] Narrative: Patient is a 62 year old assigned female at with a history of PRINCE, GERD, and dyslipidemia presenting to the emergency department today with pain all over, epigastric pain, and palpitations. Patient's physical exam showed a very anxious individual but was otherwise unremarkable. Patient's blood work was unremarkable. Patient's urine showed evidence of infection, given patient's vague symptoms and increased anxiety - will treat. Patient's EKG was unremarkable. Patient's chest x-ray showed no acute process. I explained my physical exam findings as well as all test results to the patient. I answered all questions asked by the patient. I stressed the importance of the patient taking her medication as directed (either prescribed or as the over the counter packaging recommends). I stressed the importance of the patient following up with her primary care provider. I stressed the importance of the patient returning to the emergency department immediately if her symptoms were to worsen or if she were to develop any dizziness, shortness of breath, difficulty breathing, chest pain, blurry vision, loss of vision, nausea, vomiting, abdominal pain, fever, chills, back pain, or any other complaints. Patient verbalized agreement and understanding with this treatment plan and discharge. Differential Diagnosis Differential Diagnoses: The differential diagnosis associated with the presentation includes Anxiety UTI GERD Fibromyalgia Admission/Observation Consideration of admission/observation: Escalation of care including admission/observation considered Patient would have been admitted to the hospital had her work up had any findings where hospital admission was appropriate and her clinical presentation warranted hospital admission. Lab Data [facility] Lab Attestation statement: I reviewed the patient's lab results. My interpretation of these results are in the [facility] Rationale portion of this note. 08/27/23 14:46 08/27/23 14:46 Labs: Lab Results 08/27/23 08/27/23 Range/Units 14:46 17:01 WBC 4.2 L (4.8-10.8) X10*3/uL RBC 4.02 L (4.20-5.50) X10*6/uL Hgb 11.9 L (12.0-16.0) g/dl Hct 36.2 L (37.0-47.0) % MCV 90.0 (80.0-98.0) fL MCH 29.6 (27.0-33.0) pg MCHC 32.9 (31.0-35.0) g/dl RDW 12.2 (11.0-16.0) % Plt Count 160 (160-400) X10*3/uL MPV 9.9 (9.4-12.3) fL Immature Gran % (Auto) 0.2 (0.0-0.4) % Neut % (Auto) 60.2 (45-73) % Lymph % (Auto) 30.2 (20-40) % [place] % (Auto) 6.8 (2-11) % Eos % (Auto) 1.7 (0-4) % Baso % (Auto) 0.9 (0-2) % Lymph # (Auto) 1.3 (1.2-4.9) X10*3/uL [place] # (Auto) 0.3 (0.1-1.2) X10*3/uL Eos # (Auto) 0.1 (0.0-0.4) X10*3/uL Baso # (Auto) 0.0 (0.0-0.2) X10*3/uL Abs Immat Gran (auto) 0.01 (0.00-0.03) X10*3/uL Absolute Neuts (auto) 2.6 (2.0-8.3) x10*3/uL Absolute Nucleated RBC 0.000 (0.0-0.012) X10*3/uL Nucleated RBC % (auto) 0.0 (0.0-0.2) /100WBC Sodium 142 (135-145) mmol/L Potassium 4.2 (3.3-5.1) mmol/L Chloride 106 (96-108) mmol/L Carbon Dioxide 28 (22-29) mmol/L Anion Gap 12 (12-20) BUN 13 (9-16) mg/dL Creatinine 0.88 (0.5-1.4) mg/dL Estim Creat Clear Calc 47.6 Estimated GFR > 60 Random Glucose 102 (60-115) mg/dL Calcium 10.0 (8.4-10.2) mg/dL Magnesium 2.2 (1.6-2.6) mg/dL Total Bilirubin 0.4 (0.0-1.0) mg/dL AST 18 (5-31) U/L ALT 5 (0-31) U/L Alkaline Phosphatase 55 (39-117) U/L Total Protein 7.1 (6.5-8.0) g/dL Albumin 4.4 (3.5-5.0) g/dL TSH 0.72 (0.32-4.0) uIU/mL Urine Color Yellow Urine Appearance Clear Urine pH 6.5 (5.0-9.0) Ur Specific [place] 1.020 (1.005-1.025) Urine Protein Negative (Neg-Trace) mg/dL Urine Glucose (UA) Negative (Negative) mg/dL Urine Ketones Trace (Negative) mg/dL Urine Blood Small (1+) H (Negative) Urine Nitrite Negative (Negative) Ur Leukocyte Esterase Trace H (Negative) Urine RBC 11-20 H (0-2) /HPF Urine WBC 11-20 H (0-5) /HPF Ur Squamous Epith Cells 0-2 (0-2) /HPF Urine Bacteria None Seen (None Seen) Hyaline Casts 0-2 (0-2) /LPF Influenza Type A (PCR) NEGATIVE (Negative) Influenza Type B (PCR) NEGATIVE (Negative) RSV RNA Qual (PCR) NEGATIVE (Negative) SARS-CoV-2 RNA (RT-PCR) NEGATIVE (Negative) Independent Interpretation I performed an independent interpretation of an: EKG and Plain X-Ray Interpretation: My interpretation is in agreement with the radiologist's impression of this imaging study. - EXAMINATION: XR CHEST CLINICAL INFORMATION: Palpitation. Pain. COMPARISON: None available. TECHNIQUE: 2 views of the chest were obtained. FINDINGS: No significant abnormality is noted involving the heart, lungs, mediastinum, bony thorax or soft tissues. XR/XR chest 2V IMPRESSION: Unremarkable examination. Dictated By: Michel Handy MD Signed By: Electronically signed by Michel Handy MD 08/27/23 1644 - Vent. Rate: 062 BPM Atrial Rate: 062 BPM P-R Int: 146 ms QRS Dur: 090 ms QT Int: 414 ms P-R-T Axes: 072 044 049 degrees QTc Int: 420 ms Normal sinus rhythm Normal ECG No previous ECGs available DD/ 1610 Radiology Impression Discussion of test interpretation with radiology: I have reviewed the radiologist's reading. Prescription Management I considered prescription management with: Antibiotic (patient prescribed an antibiotic for a UTI) Discharge Plan Discharge Clinical Impression: UTI (urinary tract infection), Anxiety Patient Disposition: Home, Self-Care Instructions: Urinary Tract Infection in Women (DC), Anxiety (ED) Additional Instructions: Take your antibiotic as prescribed. You should take the anti-anxiety medication your primary care provider gave you. Follow up with your primary care provider. Return to the emergency department immediately if your symptoms worsen or if you develop any dizziness, shortness of breath, difficulty breathing, chest pain, blurry vision, loss of vision, nausea, vomiting, abdominal pain, fever, chills, back pain, or any other complaints. Prescriptions: New cefuroxime axetil 250 mg tablet 250 mg PO BID 7 Days Qty: 14 0RF No Action rosuvastatin 5 mg tablet 5 mg PO Q OTHER DAY Qty: 45 1RF meclizine 25 mg tablet 25 mg PO BID PRN (Reason: dizziness) Qty: 20 0RF escitalopram oxalate 5 mg tablet 5 mg PO DAILY Qty: 30 0RF Referrals: Anne-Marie Daniel MD [Primary Care Provider] - Print Language: [place]
[2023-08-27 14:50] LABS: MANUAL DIFF FLAG NO
[2023-08-27 14:51] LABS: Basophils Percent Auto 0.9 % (0-2); Eosinophils Absolute Auto 0.1 X10*3/uL (0.0-0.4); Eosinophils Percent Auto 1.7 % (0-4); Hematocrit 36.2 % (37.0-47.0); Hemoglobin 11.9 g/dl (12.0-16.0); Imm Gran Abs Auto 0.01 X10*3/uL (0.00-0.03); Imm Gran Pct Auto 0.2 % (0.0-0.4); Lymphocytes Absolute Auto 1.3 X10*3/uL (1.2-4.9); Lymphocytes Percent Auto 30.2 % (20-40); Mean Corpuscular HGB Conc 32.9 g/dl (31.0-35.0); Mean Corpuscular Hemoglobin 29.6 pg (27.0-33.0); Mean Platelet Volume 9.9 fL (9.4-12.3); Monocytes Absolute Auto 0.3 X10*3/uL (0.1-1.2); Monocytes Percent Auto 6.8 % (2-11); Neutrophils Absolute Auto 2.6 x10*3/uL (2.0-8.3); Neutrophils Percent Auto 60.2 % (45-73); Platelet Count 160 X10*3/uL (160-400); Red Blood Count 4.02 X10*6/uL (4.20-5.50); Red Cell Distribution Width 12.2 % (11.0-16.0); White Blood Count 4.2 X10*3/uL (4.8-10.8)
[2023-08-27 15:07] LABS: Alanine Aminotransferase 5 U/L (0-31); Albumin Level 4.4 g/dL (3.5-5.0); Alkaline Phosphatase 55 U/L (39-117); Anion Gap 12 (12-20); Aspartate Amino Transferase 18 U/L (5-31); Bilirubin Total 0.4 mg/dL (0.0-1.0); Blood Urea Nitrogen 13 mg/dL (9-16); Carbon Dioxide 28 mmol/L (22-29); Chloride 106 mmol/L (96-108); Creatinine Clr Calc Pharmacy 47.6; Estimated Glomerular Filt Rate > 60; Glucose Random 102 mg/dL (60-115); Magnesium 2.2 mg/dL (1.6-2.6); Potassium 4.2 mmol/L (3.3-5.1); Sodium 142 mmol/L (135-145); Total Protein 7.1 g/dL (6.5-8.0)
--- NOTE | 2023-08-27 15:17 | ECG_ITS ---
Test Reason : palpitations Blood Pressure : / mmHG Vent. Rate : 062 BPM Atrial Rate : 062 BPM P-R Int : 146 ms QRS Dur : 090 ms QT Int : 414 ms P-R-T Axes : 072 044 049 degrees QTc Int : 420 ms Normal sinus rhythm Normal ECG No previous ECGs available Referred By: Belen Rosado Electronically Signed By:VALENTE OROZCO
[2023-08-27 15:30] LABS: Influenza A PCR NEGATIVE (Negative); Influenza B PCR NEGATIVE (Negative); Resp Syncy Virus RNA Qual PCR NEGATIVE (Negative); SARS COV2 PCR INHOUSE NEGATIVE (Negative)
[2023-08-27 16:04] LABS: TSH reflex Free T4 0.72 uIU/mL (0.32-4.0)
[2023-08-27 17:27] LABS: Appearance Urine Clear; Color Urine Yellow; Glucose Urine UA Negative (Negative); Leukocyte Esterase Urine Trace (Negative); Nitrite Urine Negative (Negative); PH 6.5 (5.0-9.0); UMIC TRIGGER UACC YES; Urine Blood Small (1+) (Negative); Urine Ketones Trace mg/dL (Negative); Urine Protein Negative (Neg-Trace)
[2023-08-27 17:33] LABS: Bacteria Urine None Seen (None Seen); Hyaline Casts Urine 0-2 /LPF (0-2); Squamous Epithelial Cell Urine 0-2 /HPF (0-2); UACC Culture Trigger YES
[2023-08-27 17:56] VITALS: BP 111/66; PULSE 66; RESP 16; TEMP 36.8; O2SAT 100
[2023-08-27 18:44] LABS: Troponin-I High Sensitivity < 2.7 ng/L (<3.5-17.0)
== END 2023-08-27 17:56 | disposition home or self-care (01) ==
PROVIDERS: Physician Assistant; Physician Assistant Medical; Emergency Provider Emergency Medicine; PCP Internal Medicine
DX: N39.0 Urinary tract infection, site not specified (principal); F41.9 Anxiety disorder, unspecified; R00.2 Palpitations; R10.13 Epigastric pain; K21.9 Gastro-esophageal reflux disease without esophagitis; E78.5 Hyperlipidemia, unspecified; Z03.818 Encounter for observation for suspected exposure to other biological agents ruled out
CPT/HCPCS: 0241U; 36415; 71046; 80053; 81001; 83735; 84443; 84484; 85025; 87086; 93005; 99283

== ENCOUNTER → 2023-08-27 15:17 | Outpatient (BNV) | payer OTHER, SELFPAY | PROVIDERS: Emergency Provider Emergency Medicine; PCP Internal Medicine; Visit Provider Internal Medicine | DX: R00.2 Palpitations (principal) | CPT/HCPCS: 93010 ==

== ENCOUNTER 2023-09-30 08:58 | Outpatient (AMB) | payer OTHER, SELFPAY ==
[2023-09-30 09:09] VITALS: BP 92/60; PULSE 62; O2SAT 98; BMI 21.1
--- NOTE | 2023-09-30 09:09 | MHC.PC.OV ---
Vital Signs 09/30/23 09:09 Height 5 ft Weight 108 lb BMI 21.1 BP 92/60 Blood Pressure Location Rt brachial Position Sitting Pulse 62 Pulse Source Pulse Oximeter Pulse Oximetry (%) 98 Oxygen Delivery Method Room Air Intake Visit Reasons: [facility] ED F/U Intake Note: Pt is here today for her [facility] ER f/u Allergies atorvastatin Adverse Reaction (Unknown, Verified 10/03/23 19:08) muscle pain Medication List - Last Reconciled 10/03/23 by Anne-Marie Daniel MD escitalopram oxalate 5 mg PO DAILY meclizine 25 mg PO BID PRN rosuvastatin 5 mg PO Q OTHER DAY Tobacco use date assessed: 09/30/23 Dental Screening Dental Screen Date: 09/30/23 Did you have a dental visit in the last 12 months?: Yes Did you have a dental problem in the last 6 months where you did not have access to dental care?: No Was dental information given to patient?: Patient has dentist HPI [facility] [place] ED F/U HPI Details 62 year old female with a history of PRINCE, GERD, and dyslipidemia here today for follow-up after recent ER visit where she was seen complaining of having pain all over, epigastric pain, and palpitations.. She was noted to be very anxious at the ER but was physical exam list unremarkable. Her labs , EKG, chest X also came back unremarkable except for her urine which showed evidence of. Infectious . At present patient states complaining of feeling very anxious, but denies any urinary symptoms, no back pain. She has been diagnosed to have OCD and depression in the past, currently on escitalopram 5 mg daily which she states has not really been helping [facility] Medical History (Updated 09/30/23 @ 10:06 by Anne-Marie Daniel MD) OCD (obsessive compulsive disorder) Anemia Intermittent lightheadedness Mammogram declined Papanicolaou smear declined Generalized anxiety disorder Hiatal hernia with GERD Anal fissure Dyslipidemia Surgical History S/P anal fissurectomy Family History Father Hx of coronary artery disease Hx of hyperlipidemia Mother Hx of hyperlipidemia Hx of thyroid cancer Brother Hx of hyperlipidemia Social History Housing: House Alcohol intake: current Patient Tobacco Use Status: Former Tobacco user Years Smoked: 25yrs e-Cigarette/Vaping Use: Never Used service: No Current occupational status: employed Cognitive needs: No Hearing needs: No Vision needs: No Questionnaire PHQ-9 Over the last 2 weeks, how often have you been bothered by any of the following problems? 1. Little interest or pleasure in doing things: several days 2. Feeling down, depressed, or hopeless: several days 3. Trouble falling or staying asleep, or sleeping too much: several days 4. Feeling tired or having little energy: several days 5. Poor appetite or overeating: several days 6. Feeling bad about yourself - or that you are a failure or have let yourself or your family down: several days 7. Trouble concentrating on things, such as reading the newspaper or watching television: several days 8. Moving or speaking so slowly that other people could have noticed. Or the opposite - being so fidgety or restless that you have been moving around a lot more than usual: several days 9. Thoughts that you would be better off or of hurting yourself in some way: several days Total score: 9 Depression Screening Interpretation: Positive Depression Screening Follow-up: Existing condition and Community Mental Health Worker F/U Depression Screening Done: Yes Source: Developed by Drs. Johny Bryan, Melissa Ayala, Rodger Hunter and colleagues, with an educational azalea from [employer]. Thrive Questionnaire Date Thrive assessed: 09/30/23 I am a: Patient What is your living situation today?: I have a steady place to live Within the past 12 months, did the food you bought not last and you didn't have the money to get more?: Never true Within the past 12 months, did you worry whether your food would run out before you got money to buy more?: Never true Do you have trouble paying for medicines?: No Do you have trouble getting transportation to medical appointments?: No Do you have trouble paying your heating and electricity bill?: No Do you have trouble taking care of your child, family member or friend?: No Do you have trouble with day-to-day activities such as bathing, preparing meals, shopping, managing finances, etc.?: No Are you currently unemployed and looking for a job?: No Are you interested in more education?: No Please select the resources that you would like help with: Housing/Fdc Currently or been in a relationship where the following occur: I choose not to answer THRIVE Score: 0 AUDIT C Alcohol Use Questionnaire (AUDIT-C) 1. How often do you have a drink containing alcohol?: Never Total Score: 0 PRINCE-7 AMB Questionnaire PRINCE-7 Date PRINCE - 7 assessed: 09/30/23 Feeling nervous, anxious, or on edge: 1 = Several days Not being able to stop or control worryin = Several days Worrying too much about different things: 1 = Several days Trouble relaxin = Several days Being so restless that it is hard to sit still: 1 = Several days Becoming easily annoyed or irritable: 1 = Several days Feeling afraid as if something awful might happen: 1 = Several days Total PRINCE-7 score (0-4 normal; 5-9 mild; 10-14 moderate; 15-21 severe): 7 Source: Developed by Drs. Johny Bryan, Melissa Ayala, Rodger Hunter and colleagues, with an educational azalea from [employer]. PRINCE-7 Assessment Billing PRINCE-7 Assessment Tool: PRINCE-7 Assessment 99080 Review of Systems Const Denies fatigue, Denies fever(s), Denies headache(s), Denies poor appetite and Denies weakness Eyes Denies change in vision ENT Reports Normal hearing present, Denies dizziness, Denies headache(s), Denies nasal congestion and Denies tinnitus Card Reports no additional complaints Resp Reports no additional complaints GI Denies change in bowel habits, Reports heartburn (Occasional), Denies nausea and Denies vomiting Reports no additional complaints Musc Reports no additional complaints Skin/Breast Denies breast swelling, Denies breast pain, Denies breast mass, Denies lesions and Denies rash Neuro Reports no additional complaints, Reports Normal hearing present, Denies dizziness, Denies headache(s), Denies focal weakness and Denies weakness Psych Reports change in appetite, Reports irritability and Reports anhedonia Endo Reports no additional complaints and Denies fatigue Kuldip/Lymph Reports no additional complaints Aller/Immun Reports no additional complaints Physical exam (Primary Care) Vital Signs: Last Vital Signs Pulse 62 09/30/23 09:09 BP 92/60 09/30/23 09:09 Pulse Ox 98 09/30/23 09:09 Oxygen Delivery Method Room Air 09/30/23 09:09 BMI result Body Mass Index 21.1 Tobacco/Smoking Status: Tobacco use Status Tobacco use date assessed 09/30/23 09/30/23 09:14 Patient Tobacco Use Status Former Tobacco user 09/30/23 09:14 e-Cigarette/Vaping Use Never Used 09/30/23 09:14 PHQ-9: PHQ-9 Score PHQ-9: Total score 9 09/30/23 10:11 Depression Screening Interpretation: Positive Depression Screening Follow-up: Existing condition and Community Mental Health Worker F/U Thrive Assessment: Date of Thrive Assessment Date Thrive assessed 09/30/23 09/30/23 09:14 Currently or been in a relationship where the following occur: I choose not to answer Const Other: Alert oriented x3, no acute cardiorespiratory distress, normal gait, has been accompanying patient Nutritional Appearance: average body habitus HENMT Head: Yes normocephalic General nose exam: Normal external nose present and No nasal discharge present Face and sinus: Yes face symmetric Mouth: oropharynx normal and moist mucous membranes Eyes General: appearance normal, both eyes and all related structures Neck Neck: Yes full ROM, Yes no lymphadenopathy and Yes supple Thyroid: Thyroid normal Resp Auscultation: clear to auscultation bilaterally, no rales and no wheezes Cardio Other: S1-S2 present regular rate and rhythm GI Inspection: Yes normal to inspection Palpation (GI): Soft to palpation, nontender, no guarding and no masses Auscultation: normal bowel sounds General: Yes no CVA tenderness Back/Spine/Pelvis Back: no CVA tenderness and No back tenderness Skin General skin exam: no rashes or lesions noted Neuro General: gait normal, tone normal, moves all extremities, Normal light touch and pain sensation, no focal motor deficits and CN's II-XI intact bilaterally Cranial nerves: Yes Normal hearing present Extrem General: Yes full ROM, Yes no joint enlargement, Yes no pedal edema and Yes normal gait Psych Appearance: grossly normal and well kempt Mental Status: mental status grossly normal Speech and movement: Normal speech and movement present Affect: Irritable affect present Attitude: cooperative Thought process: Normal thought process present Thought content: Normal thought content present Results AMB Urinalysis, Automated UA Leukoctes 0 Javier/uL Last Edit by Nathalia Elizondo CMA on 09/30/23 10:12 UA Nitrite Negative Last Edit by Nathalia Elizondo, KEENAN on 09/30/23 10:12 UA Urobilinogen 0.2 mg/dL Last Edit by Nathalia Elizondo, KEENAN on 09/30/23 10:12 UA Protein 0 mg/dL Last Edit by Nathalia Elizondo, KEENNA on 09/30/23 10:12 UA pH 6.0 Last Edit by Nathalia Elizondo, TEACHERS ASSISTANT on 09/30/23 10:12 UA Blood 80 Moise/uL Last Edit by Nathalia Elizondo, KEENAN on 09/30/23 10:12 UA Specific [place] 1.020 Last Edit by Nathalia Elizondo, KEENAN on 09/30/23 10:12 UA Ketone Negative Last Edit by Nathalia Elizondo, KEENAN on 09/30/23 10:12 UA Bilirubin 0 mg/dL Last Edit by Nathalia Elizondo, KEENAN on 09/30/23 10:12 UA Glucose 0 mg/dL Last Edit by Nathalia Elizondo, KEENAN on 09/30/23 10:12 Results Reviewed Results Reviewed: Laboratory Last Values Urine pH (Auto) 6.0 09/30/23 10:09 Specific [place] (Auto) 1.020 09/30/23 10:09 Urine Protein (Auto) 0 mg/dL 09/30/23 10:09 Glucose (UA)(Auto) 0 mg/dL 09/30/23 10:09 Urine Ketones (Auto) Negative 09/30/23 10:09 Urine Blood (Auto) 80 Moise/uL 09/30/23 10:09 Urine Nitrite (Auto) Negative 09/30/23 10:09 Urine Bilirubin (Auto) 0 mg/dL 09/30/23 10:09 Urine Urobilinogen (Auto) 0.2 mg/dL 09/30/23 10:09 Leukocyte Esterase (Auto) 0 Javier/uL 09/30/23 10:09 Assessment and Plan Assessment & Plan (1) OCD (obsessive compulsive disorder): Code(s): F42.9 - Obsessive-compulsive disorder, unspecified Plan: Referred to [facility] for referral for psychotherapy and psychiatrist. Continued with escitalopram 5 mg daily (2) Generalized anxiety disorder: Code(s): F41.1 - Generalized anxiety disorder Plan: Referred to [facility] for referral for psychotherapy and psychiatrist. Continued with escitalopram 5 mg daily (3) Hx: UTI (urinary tract infection): Code(s): Z87.440 - Personal history of urinary (tract) infections Plan: Urinalysis done showed negative findings (4) Microscopic hematuria: Code(s): R31.29 - Other microscopic hematuria Plan: Urine cytology ordered Orders: Orders Urine Cytology 09/30/23 R31.29 - Other microscopic hematuria AMB Urinalysis Automated 09/30/23 Z13.9 - Encounter for screening, unspecified Coding Level of Care Code Est Pt Level 4 (64199) Diagnoses OCD (obsessive compulsive disorder) F42.9 Generalized anxiety disorder F41.1 Hx: UTI (urinary tract infection) Z87.440 Microscopic hematuria R31.29 Additional Codes PRINCE-7 Assessment Billing - PRINCE-7 Assessment Tool: PRINCE-7 Assessment 06185 ([id number])
== END 2023-09-30 11:01 | disposition home or self-care (01) ==
PROVIDERS: PCP Internal Medicine; Visit Provider Internal Medicine
DX: R31.29 Other microscopic hematuria (principal)
CPT/HCPCS: 81003; 99214

== ENCOUNTER 2023-09-30 10:09 | Outpatient (REF) | payer OTHER, SELFPAY ==
[2023-09-30 13:14] LABS: Urine Cytology See Pathology rpt
== END 2023-09-30 10:10 | disposition home or self-care (01) ==
LOC: HO.LAB 10:09
PROVIDERS: Visit Provider Internal Medicine
DX: R31.29 Other microscopic hematuria (principal)
CPT/HCPCS: 88112

== ENCOUNTER 2023-12-16 16:20 | Outpatient (AMB) | payer OTHER, SELFPAY ==
--- NOTE | 2023-12-16 16:21 | AM.OFFWIN_ITS ---
Intake Vital Signs 12/16/23 16:28 Height 5 ft Weight 108 lb BMI 21.1 BP 100/60 Blood Pressure Location Rt brachial Position Sitting Pulse 70 Pulse Source Pulse Oximeter Temp 98.7 F Temp Source Oral Pulse Oximetry (%) 98 Oxygen Delivery Method Room Air Intake Visit Reasons: EP UTI Patient Tobacco Use Status: Former Tobacco user Allergies atorvastatin Adverse Reaction (Unknown, Verified 12/16/23 16:34) muscle pain Do you need a note to return to daycare/school/sports/work: No HPI HPI Comments History of Present Illness Details This is a 63-year-old female with a past medical history of hyperlipidemia and anxiety presenting for evaluation of an acute urinary tract infection. Patient states that she had pain in the right side of her jaw 4 days ago which has since resolved and she now has pain in her right buttock that radiates down her right posterior leg. Patient denies having any fevers, chills, dysuria, urinary frequency or hematuria. [facility] Medical History (Updated 12/16/23 @ 17:00 by Katie Ramachandran PA-C) OCD (obsessive compulsive disorder) Anemia Intermittent lightheadedness Mammogram declined Papanicolaou smear declined Generalized anxiety disorder Hiatal hernia with GERD Anal fissure Dyslipidemia Surgical History S/P anal fissurectomy Family History Father Hx of coronary artery disease Hx of hyperlipidemia Mother Hx of hyperlipidemia Hx of thyroid cancer Brother Hx of hyperlipidemia Social History Housing: House Alcohol intake: current Patient Tobacco Use Status: Former Tobacco user Years Smoked: 25yrs e-Cigarette/Vaping Use: Never Used service: No Current occupational status: employed Cognitive needs: No Hearing needs: No Vision needs: No Review of Systems Const All systems reviewed & are unremarkable except as noted in HPI and below Reports no additional complaints Eyes Reports no additional complaints ENT Reports no additional complaints Card Reports no additional complaints Resp Reports no additional complaints GI Reports no additional complaints Reports no additional complaints, Denies urinary frequency, Denies difficulty voiding, Denies nocturia, Denies dysuria, Denies urinary incontinence, Denies urinary hesitancy, Denies urinary urgency and Reports other (no hematuria) Skin/Breast Reports system reviewed and no additional complaints, except as documented Neuro Reports no additional complaints Psych Reports no additional complaints Endo Reports no additional complaints Aller/Immun Reports no additional complaints Physical Exam Vital Signs: Last Vital Signs Temp 98.7 F 12/16/23 16:28 Pulse 70 12/16/23 16:28 BP 100/60 12/16/23 16:28 Pulse Ox 98 12/16/23 16:28 Oxygen Delivery Method Room Air 12/16/23 16:28 BMI result Body Mass Index 21.1 Const General: cooperative, healthy appearing, comfortable and no acute distress Nutritional Appearance: average body habitus Orientation/consciousness: patient oriented x3 Limitations: no limitations Resp Effort & Inspection: normal respiratory effort, able to speak in complete sentences and abnormal respiratory pattern Auscultation: clear to auscultation bilaterally Cardio Rate: regular rate Rhythm: regular rhythm GI Palpation (GI): Soft to palpation and nontender Auscultation: normal bowel sounds General: Yes Bimanual renal exam normal bilaterally, Yes bladder normal to palpation and Yes no CVA tenderness Bimanual exam- vagina & uterus: bladder normal to palpation Back/Spine/Pelvis Back: no CVA tenderness Thoracic/Lumbar Spine: thoracic and lumbar spine normal to inspection, thoraco- lumbar ROM normal, straight leg raise negative bilaterally, No paraspinal muscle tenderness, No thoraco-lumbar ROM limited, No thoracic spinal tenderness and No lumbar spinal tenderness Sacroiliac joints: on the right (mild right sciatic notch tenderness) and on the left nontender Skin General skin exam: no rashes or lesions noted Neuro General: patient oriented x3 Psych Appearance: grossly normal Mental Status: mental status grossly normal Insight: Good insight present (Psych) Judgement: Good judgement present (Psych) Results AMB Urinalysis, Automated UA Leukoctes 125 Javier/uL Last Edit by JOVANNA Cota on 12/16/23 16: 31 UA Nitrite Negative Last Edit by JOVANNA Cota on 12/16/23 16:31 UA Urobilinogen 0.2 mg/dL Last Edit by JOVANNA Cota on 12/16/23 16:31 UA Protein 15 mg/dL Last Edit by JOVANNA Cota on 12/16/23 16:31 UA pH 6.0 Last Edit by JOVANNA Cota on 12/16/23 16:31 UA Blood 80 Moise/uL Last Edit by JOVANNA Cota on 12/16/23 16:31 UA Specific [place] 1.025 Last Edit by JOVANNA Cota on 12/16/23 16:31 UA Ketone Negative Last Edit by JOVANNA Cota on 12/16/23 16:31 UA Bilirubin 1 mg/dL Last Edit by Sabine Maya CCMA on 12/16/23 16:31 UA Glucose 0 mg/dL Last Edit by JOVANNA Cota on 12/16/23 16:31 Results Reviewed Results Reviewed: Laboratory Last Values Urine pH (Auto) 6.0 12/16/23 16:29 Specific [place] (Auto) 1.025 12/16/23 16:29 Urine Protein (Auto) 15 mg/dL 12/16/23 16:29 Glucose (UA)(Auto) 0 mg/dL 12/16/23 16:29 Urine Ketones (Auto) Negative 12/16/23 16:29 Urine Blood (Auto) 80 Moise/uL 12/16/23 16:29 Urine Nitrite (Auto) Negative 12/16/23 16:29 Urine Bilirubin (Auto) 1 mg/dL 12/16/23 16:29 Urine Urobilinogen (Auto) 0.2 mg/dL 12/16/23 16:29 Leukocyte Esterase (Auto) 125 Javier/uL 12/16/23 16:29 Assessment & Plan Assessment & Plan (1) Sciatic pain: Comment: Patient denies any injury or trauma and is ambulating without ataxia. Patient will be advised to use a heating pad and ibuprofen as needed. Code(s): M54.30 - Sciatica, unspecified side Qualifiers: Laterality: right Qualified Code(s): M54.31 - Sciatica, right side Plan: Ibuprofen 400 mg q.6 to 8 hours as needed for pain; patient may use a heating pad at 20 minute intervals to her right buttock. Given that this patient has known urinary symptoms, antibiotic therapy will be deferred at this time. Patient was unable to provide a volume of urine to submit for urine culture. Orders: Orders AMB Urinalysis Automated Today Z13.9 - Encounter for screening, unspecified Patient Instructions: Patient's urinalysis is reviewed. Coding Level of Care Code Est Pt Level 3 (25232) Diagnoses Right sciatic nerve pain M54.31 Laterality: right Time Spent (min) 20
[2023-12-16 16:28] VITALS: BP 100/60; PULSE 70; TEMP 37.1; O2SAT 98; BMI 21.1
== END 2023-12-16 16:44 | disposition home or self-care (01) ==
PROVIDERS: PCP Internal Medicine; Visit Provider Physician Assistant
DX: M54.31 Sciatica, right side (principal); Z13.9 Encounter for screening, unspecified

== ENCOUNTER → 2023-12-16 16:20 | Outpatient (BNVA) | payer OTHER, SELFPAY | PROVIDERS: PCP Internal Medicine | DX: M54.31 Sciatica, right side (principal) | CPT/HCPCS: 81003 ==

== ENCOUNTER 2024-04-08 08:00 | Outpatient (AMB) | payer OTHER, SELFPAY ==
[2024-04-08 08:10] VITALS: BP 104/60; PULSE 68; TEMP 36.7; O2SAT 97
--- NOTE | 2024-04-08 08:10 | AM.OFFWIN_ITS ---
Intake Vital Signs 04/08/24 08:10 Weight 109 lb BP 104/60 Blood Pressure Location Rt brachial Position Sitting Pulse 68 Pulse Source Pulse Oximeter Temp 98.1 F Temp Source Oral Pulse Oximetry (%) 97 Oxygen Delivery Method Room Air Intake Visit Reasons: EP ? UTI Intake Note: Patient here for headaches, back pain that has been present for about 3 days. Patient Tobacco Use Status: Former Tobacco user Allergies atorvastatin Adverse Reaction (Unknown, Verified 04/08/24 08:17) muscle pain Do you need a note to return to daycare/school/sports/work: No HPI HPI Comments History of Present Illness Details 63 y/o female patient who presents to [facility] walk in clinic with c/o lower back pain, body aches and headaches x 3 days. [facility] Medical History (Updated 04/08/24 @ 08:28 by Rose Perez NP) Acute respiratory disease OCD (obsessive compulsive disorder) Anemia Intermittent lightheadedness Mammogram declined Papanicolaou smear declined Generalized anxiety disorder Hiatal hernia with GERD Anal fissure Dyslipidemia Surgical History S/P anal fissurectomy Family History Father Hx of coronary artery disease Hx of hyperlipidemia Mother Hx of hyperlipidemia Hx of thyroid cancer Brother Hx of hyperlipidemia Social History Housing: House Alcohol intake: current Patient Tobacco Use Status: Former Tobacco user Years Smoked: 25yrs e-Cigarette/Vaping Use: Never Used service: No Current occupational status: employed Cognitive needs: No Hearing needs: No Vision needs: No Review of Systems Const All systems reviewed & are unremarkable except as noted in HPI and below Physical Exam Vital Signs: Last Vital Signs Temp 98.1 F 04/08/24 08:10 Pulse 68 04/08/24 08:10 BP 104/60 04/08/24 08:10 Pulse Ox 97 04/08/24 08:10 Oxygen Delivery Method Room Air 04/08/24 08:10 Const General: cooperative and no acute distress Orientation/consciousness: patient oriented x3 Resp Effort & Inspection: normal respiratory effort and able to speak in complete sentences Auscultation: clear to auscultation bilaterally, no crackles, no rales, no rhonchi and no wheezes Cardio Heart sounds: S1 normal heart sound present and S2 normal heart sound present General: Yes no CVA tenderness Back/Spine/Pelvis Back: no CVA tenderness Neuro General: patient oriented x3 Assessment & Plan Assessment & Plan (1) Acute respiratory disease: Code(s): J06.9 - Acute upper respiratory infection, unspecified Plan: Acetaminophen for pain relief Rest and hydrate well F/u with PCP. Orders: Orders SARS-CoV2/FLU/RSV Today J06.9 - Acute upper respiratory infection, unspecified AMB Urinalysis Automated Today Z13.9 - Encounter for screening, unspecified Coding Level of Care Code Est Pt Level 4 (08029) Diagnoses Acute respiratory disease J06.9 Time Spent (min) 20
== END 2024-04-08 08:37 | disposition home or self-care (01) ==
PROVIDERS: PCP Internal Medicine; Visit Provider Nurse Practitioner Family
DX: J06.9 Acute upper respiratory infection, unspecified (principal); Z13.9 Encounter for screening, unspecified

== ENCOUNTER 2024-04-08 08:00 | Outpatient (REF) | payer OTHER, SELFPAY ==
[2024-04-08 11:13] LABS: Influenza A PCR NEGATIVE (Negative); Influenza B PCR NEGATIVE (Negative); Resp Syncy Virus RNA Qual PCR NEGATIVE (Negative); SARS COV2 PCR INHOUSE NEGATIVE (Negative)
== END 2024-04-08 08:01 | disposition home or self-care (01) ==
LOC: HO.LAB 08:00
PROVIDERS: PCP Internal Medicine; Visit Provider Nurse Practitioner Family
DX: J06.9 Acute upper respiratory infection, unspecified (principal)
CPT/HCPCS: 0241U; 81003

== ENCOUNTER 2024-06-16 15:20 | Emergency (ER) | payer OTHER, SELFPAY ==
--- NOTE | ~2024-06-16 | XR_ITS ---
EXAMINATION: XR CHEST CLINICAL INFORMATION: cp COMPARISON: None available. TECHNIQUE: 2 views of the chest were obtained. FINDINGS: The cardiac, hilar, and mediastinal contours are normal. The lungs are hyperaerated, however clear bilaterally. There is no pneumothorax or pleural effusion. There is no focal osseous or soft tissue abnormality. XR/XR chest 2V IMPRESSION: Hyperaerated lung parenchyma. No active superimposed disease. Electronically signed by: Kenneth Myers MD 06/16/2024 04:16 PM EDT
--- NOTE | 2024-06-16 15:27 | ECG_ITS ---
Test Reason : CP Blood Pressure : */* mmHG Vent. Rate : 71 BPM Atrial Rate : 71 BPM P-R Int : 140 ms QRS Dur : 90 ms QT Int : 390 ms P-R-T Axes : 81 37 43 degrees QTcB Int : 423 ms Normal sinus rhythm Normal ECG When compared with ECG of 27-Aug-2023 16:10, No significant change was found Referred By: Generic ED Physician Electronically Signed By: VALENTE OROZCO
--- NOTE | 2024-06-16 15:34 | ED_ITS ---
HPI - Chest Pain General Chief Complaint: Chest Pain Stated Complaint: Chest Pain-Pinching Sentation, Hard Time Breathing Time Seen by Provider: 06/16/24 18:21 Source: patient, family (daughter), RN notes reviewed and old records reviewed Mode of arrival: ambulatory Limitations: no limitations History of Present Illness ED Provider: Kalyani GUERIN narrative: 63-year-old female with a past medical history significant for anxiety, OCD, hyperlipidemia presents for evaluation of chest pain. Patient reports on and off chest pain for the last month which has been worse over the last week. The pain is mostly central to left-sided but over the last few days has lateralize to the right side She occasionally feels short of breath She believes her symptoms are random and unrelated to exertion. She has a burning upper abdominal pain that rise into her throat. She was unsure if this is worse after eating Denies any leg swelling, recent travel. Denies any fevers, cough. Denies any sick contacts. Currently she was not experiencing the pain Related Data Previous Rx's ?Medication ?Instructions ?Recorded meclizine 25 mg tablet 25 mg PO BID PRN dizziness #20 tabs 08/06/23 lorazepam 0.5 mg tablet 0.5 mg PO DAILY PRN acute anxiety 10/25/23 attacks #7 tabs rosuvastatin 5 mg tablet 5 mg PO Q OTHER DAY #45 tabs 02/16/24 Allergies Allergy/AdvReac Type Severity Reaction Status Date / Time atorvastatin AdvReac Unknown muscle pain Verified 06/16/24 15:36 Review of Systems 2 Constitutional: Constitutional: Denies body ache(s), Denies chills, Denies fever(s) and Denies headache(s) Eyes: Eyes: Denies blurry vision and Denies floaters ENT: Denies vertigo, Reports dizziness and Denies headache(s) Cardiovascular: Cardiovascular: Reports chest pain, Reports chest pain at rest, Reports chest pain with activity, Reports Epigastric Pain, Reports epigastric discomfort, Reports rapid heart rate, Reports palpitations and Reports dyspnea Respiratory: Respiratory: Denies cough and Reports dyspnea Gastrointestinal: Gastrointestinal: Denies abdominal pain, Denies nausea and Denies vomiting Musculoskeletal: Musculoskeletal: Denies back pain Integumentary/Breasts: Skin/Breast: Denies rash Neurologic: Denies vertigo, Reports dizziness and Denies headache(s) Psychiatric: Psychiatric: Reports anxiety and Denies suicidal ideation Endocrine: Endocrine: Reports palpitations PMFSH Past Medical History Medical History (Updated 06/16/24 @ 18:37 by Eleno Auguste) Acute respiratory disease OCD (obsessive compulsive disorder) Anemia Intermittent lightheadedness Mammogram declined Papanicolaou smear declined Generalized anxiety disorder Hiatal hernia with GERD Anal fissure Dyslipidemia Surgical History S/P anal fissurectomy Family History Family History Father Hx of coronary artery disease Hx of hyperlipidemia Mother Hx of hyperlipidemia Hx of thyroid cancer Brother Hx of hyperlipidemia Social History Social History Housing: House Alcohol intake: current Patient Tobacco Use Status: Former Tobacco user Years Smoked: 25yrs Smoked in Last 30 Days: No e-Cigarette/Vaping Use: Never Used Use of substances other than those prescribed or required for medical reasons: No Advance Directives: No Advance Directives Information Provided: Yes service: No Current occupational status: employed Cognitive needs: No Hearing needs: No Vision needs: No Physical Exam 2 Vital Signs: Vital Signs: Last Vital Signs Temp 97.7 F 06/16/24 18:47 Pulse 66 06/16/24 18:47 Resp 16 06/16/24 18:47 BP 112/64 06/16/24 18:47 Pulse Ox 99 06/16/24 18:17 O2 Del Method Room Air 06/16/24 18:17 BMI result Body Mass Index 19.8 Const: General: healthy appearing, comfortable, no acute distress, alert and awake Nutritional Appearance: well nourished Orientation/consciousness: p atient oriented x3 HEENT: Head: Yes normocephalic and Yes atraumatic Eyes: Eyelids: Yes eyelids normal Conjunctivae: conjunctivae normal S clerae: sclerae normal Corneas: corneas normal Pupils: Equal, round and reactive pupils present EOM: EOMs intact bilaterally Neck: Neck: Yes full ROM Resp: Effort & Inspection: normal respiratory effort, able to speak in complete sentences, no audible wheezes and not labored Auscultation: clear to auscultation bilaterally Cardio: Rate: regular rate Rhythm: regular rhythm GI: Inspection: No distended Palpation (GI): Soft to palpation, not firm, nontender, no guarding and not rigid Skin: General skin exam: elasticity normal Neuro: General: patient oriented x3 Cranial nerves: Yes Equal, round and reactive pupils present and Yes Bilaterally intact EOM present Cognition (Neuro): normal cognition Course Course Course Narrative: This is a Rapid Medical Exam performed in triage by Sally Johns PA-C. Full HPI, ROS and PE to be performed by primary ED provider. 63 yo F w/PMHx OCD, GERD, anxiety, HLD presenting to the ED c/o intermittent pinching CP since last week with lightheadedness, dizziness, fatigue & SOB / orthopnea. Also states maybe I have a UTI that's causing these sx. reports urinary frequency PE: ambulating w/steady gait, nontoxic appearing. Plan: EKG, labs, CXR Medical Decision Making Medical Decision Making [facility] Narrative: 63-year-old female with past medical history as above presents for evaluation of chest pain that has been on and off for 1 month and worse over the last week. Her EKG is normal sinus rhythm without evidence of ischemia. No change compared to previous. Troponin is negative, she rules out for ACS. Wells score is 0, chest x-ray is clear, no pneumonia, bronchitis or pleural effusions. Her labs are reassuring. Her symptoms are most likely related to anxiety which I discussed with her. Vital signs are within normal limits. She was not orthostatic. Differential Diagnosis Differential Diagnoses: The differential diagnosis associated with the presentation includes Chest pain ACS Bronchitis Chest wall pain GERD Costochondritis PE less likely Admission/Observation Consideration of admission/observation: Escalation of care including admission/observation considered Lab Data [facility] Lab Attestation statement: I reviewed the patient's lab results. No leukocytosis or significant anemia. Normal platelet count. No electrolyte abnormalities. Troponin negative. 06/16/24 16:06 06/16/24 16:06 Labs: Lab Results 06/16/24 06/16/24 Range/Units 16:06 17:46 WBC 6.0 (4.8-10.8) X10*3/uL RBC 4.10 L (4.20-5.50) X10*6/uL Hgb 12.0 (12.0-16.0) g/dl Hct 36.9 L (37.0-47.0) % MCV 90.0 (80.0-98.0) fL MCH 29.3 (27.0-33.0) pg MCHC 32.5 (31.0-35.0) g/dl RDW 12.5 (11.0-16.0) % Plt Count 177 (160-400) X10*3/uL MPV 10.1 (9.4-12.3) fL Immature Gran % (Auto) 0.3 (0.0-0.4) % Neut % (Auto) 68.8 (45-73) % Lymph % (Auto) 22.4 (20-40) % [place] % (Auto) 7.0 (2-11) % Eos % (Auto) 0.8 (0-4) % Baso % (Auto) 0.7 (0-2) % Lymph # (Auto) 1.4 (1.2-4.9) X10*3/uL [place] # (Auto) 0.4 (0.1-1.2) X10*3/uL Eos # (Auto) 0.1 (0.0-0.4) X10*3/uL Baso # (Auto) 0.0 (0.0-0.2) X10*3/uL Abs Immat Gran (auto) 0.02 (0.00-0.03) X10*3/uL Absolute Neuts (auto) 4.2 (2.0-8.3) x10*3/uL Absolute Nucleated RBC 0.000 (0.0-0.012) X10*3/uL Nucleated RBC % (auto) 0.0 (0.0-0.2) /100WBC Sodium 139 (135-145) mmol/L Potassium 4.4 (3.3-5.1) mmol/L Chloride 104 (96-108) mmol/L Carbon Dioxide 29 (22-29) mmol/L Anion Gap 10 L (12-20) BUN 15 (9-16) mg/dL Creatinine 0.83 (0.5-1.4) mg/dL Estim Creat Clear Calc 52.0 Estimated GFR > 60 Random Glucose 91 (60-115) mg/dL Calcium 9.8 (8.4-10.2) mg/dL Magnesium 1.9 (1.6-2.6) mg/dL Total Bilirubin 0.4 (0.0-1.0) mg/dL Direct Bilirubin 0.1 (0.0-0.5) mg/dL AST 21 (5-31) U/L ALT 12 (0-31) U/L Alkaline Phosphatase 60 (39-117) U/L Troponin I High Sens < 2.7 (<3.5-17.0) ng/L Total Protein 7.2 (6.5-8.0) g/dL Albumin 4.5 (3.5-5.0) g/dL Urine Color Yellow Urine Appearance Clear Urine pH 6.0 (5.0-9.0) Ur Specific [place] 1.025 (1.005-1.025) Urine Protein Negative (Neg-Trace) mg/dL Urine Glucose (UA) Negative (Negative) mg/dL Urine Ketones Trace (Negative) mg/dL Urine Blood Moderate (2+) H (Negative) Urine Nitrite Negative (Negative) Ur Leukocyte Esterase Negative (Negative) Urine RBC 11-20 H (0-2) /HPF Urine WBC 0-5 (0-5) /HPF Ur Squamous Epith Cells 0-2 (0-2) /HPF Urine Bacteria None Seen (None Seen) Hyaline Casts 0-2 (0-2) /LPF Influenza Type A (PCR) NEGATIVE (Negative) Influenza Type B (PCR) NEGATIVE (Negative) RSV RNA Qual (PCR) NEGATIVE (Negative) SARS-CoV-2 RNA (RT-PCR) NEGATIVE (Negative) Independent Interpretation I performed an independent interpretation of an: EKG Interpretation: Normal sinus rhythm with a rate of [address] changes, MO interval within normal limits. Radiology Impression Discussion of test interpretation with radiology: I have reviewed the radiologist's reading. Radiologist Impression: FINDINGS: The cardiac, hilar, and mediastinal contours are normal. The lungs are hyperaerated, however clear bilaterally. There is no pneumothorax or pleural effusion. There is no focal osseous or soft tissue abnormality. XR/XR chest 2V IMPRESSION: Hyperaerated lung parenchyma. No active superimposed disease. Electronically signed by: Kenneth Myers MD 06/16/2024 04:16 PM EDT Discharge Plan Discharge Clinical Impression: Chest pain Patient Disposition: Home, Self-Care Instructions: Chest Pain (ED) Additional Instructions: Your workup in the ER today was reassuring. This includes your blood work, chest x-ray, EKG and viral testing. Your symptoms may be related to anxiety. You may follow up with Cardiology if your symptoms persist Return for new or worsening symptoms Prescriptions: No Action meclizine 25 mg tablet 25 mg PO BID PRN (Reason: dizziness) Qty: 20 0RF lorazepam 0.5 mg tablet 0.5 mg PO DAILY PRN (Reason: acute anxiety attacks) Qty: 7 0RF rosuvastatin 5 mg tablet 5 mg PO Q OTHER DAY Qty: 45 1RF Referrals: Satya Flores MD [Physician] - (chest pain, shortness of breath) Interventions: ED Discharge Assessment Last Done: 06/16/24 18:47 Print Language: South Korean
[2024-06-16 15:35] VITALS: BP 111/60; PULSE 71; RESP 16; TEMP 36.3; O2SAT 98; BMI 19.8
[2024-06-16 16:13] LABS: MANUAL DIFF FLAG NO
[2024-06-16 16:15] LABS: Basophils Percent Auto 0.7 % (0-2); Eosinophils Absolute Auto 0.1 X10*3/uL (0.0-0.4); Eosinophils Percent Auto 0.8 % (0-4); Hematocrit 36.9 % (37.0-47.0); Imm Gran Abs Auto 0.02 X10*3/uL (0.00-0.03); Imm Gran Pct Auto 0.3 % (0.0-0.4); Lymphocytes Absolute Auto 1.4 X10*3/uL (1.2-4.9); Lymphocytes Percent Auto 22.4 % (20-40); Mean Corpuscular HGB Conc 32.5 g/dl (31.0-35.0); Mean Corpuscular Hemoglobin 29.3 pg (27.0-33.0); Mean Platelet Volume 10.1 fL (9.4-12.3); Monocytes Absolute Auto 0.4 X10*3/uL (0.1-1.2); Neutrophils Absolute Auto 4.2 x10*3/uL (2.0-8.3); Neutrophils Percent Auto 68.8 % (45-73); Platelet Count 177 X10*3/uL (160-400); Red Cell Distribution Width 12.5 % (11.0-16.0)
[2024-06-16 16:34] LABS: Alanine Aminotransferase 12 U/L (0-31); Albumin Level 4.5 g/dL (3.5-5.0); Alkaline Phosphatase 60 U/L (39-117); Anion Gap 10 (12-20); Aspartate Amino Transferase 21 U/L (5-31); Bilirubin Direct 0.1 mg/dL (0.0-0.5); Bilirubin Total 0.4 mg/dL (0.0-1.0); Blood Urea Nitrogen 15 mg/dL (9-16); Calcium 9.8 mg/dL (8.4-10.2); Carbon Dioxide 29 mmol/L (22-29); Chloride 104 mmol/L (96-108); Estimated Glomerular Filt Rate > 60; Glucose Random 91 mg/dL (60-115); Magnesium 1.9 mg/dL (1.6-2.6); Potassium 4.4 mmol/L (3.3-5.1); Sodium 139 mmol/L (135-145); Total Protein 7.2 g/dL (6.5-8.0)
[2024-06-16 16:40] LABS: Troponin-I High Sensitivity < 2.7 ng/L (<3.5-17.0)
[2024-06-16 16:54] LABS: Influenza A PCR NEGATIVE (Negative); Influenza B PCR NEGATIVE (Negative); Resp Syncy Virus RNA Qual PCR NEGATIVE (Negative); SARS COV2 PCR INHOUSE NEGATIVE (Negative)
[2024-06-16 18:01] LABS: Appearance Urine Clear; Color Urine Yellow; Glucose Urine UA Negative (Negative); Leukocyte Esterase Urine Negative (Negative); Nitrite Urine Negative (Negative); Specific Gravity - Urine 1.025 (1.005-1.025); UMIC TRIGGER UACC YES; Urine Blood Moderate (2+) (Negative); Urine Ketones Trace mg/dL (Negative); Urine Protein Negative (Neg-Trace)
[2024-06-16 18:06] LABS: Bacteria Urine None Seen (None Seen); Hyaline Casts Urine 0-2 /LPF (0-2); Squamous Epithelial Cell Urine 0-2 /HPF (0-2); WBC Urine 0-5 /HPF (0-5)
[2024-06-16 18:17] VITALS: BP 115/65; PULSE 64; RESP 21; TEMP 36.6; O2SAT 99
[2024-06-16 18:18] VITALS: BP 114/66; PULSE 67
[2024-06-16 18:25] VITALS: BP 114/61; PULSE 59
[2024-06-16 18:26] VITALS: BP 112/64; PULSE 66
[2024-06-16 18:47] VITALS: BP 112/64; PULSE 66; RESP 16; TEMP 36.5
== END 2024-06-16 18:47 | disposition home or self-care (01) ==
PROVIDERS: Physician Assistant; Emergency Provider Emergency Medicine Emergency Medical Services; PCP Internal Medicine
DX: R07.9 Chest pain, unspecified (principal); E78.5 Hyperlipidemia, unspecified; F41.9 Anxiety disorder, unspecified; Z03.818 Encounter for observation for suspected exposure to other biological agents ruled out
CPT/HCPCS: 0241U; 36415; 71046; 80048; 80076; 81001; 83735; 84484; 85025; 93005; 99283; 99284

== ENCOUNTER → 2024-06-16 15:27 | Outpatient (BNV) | payer OTHER, SELFPAY | PROVIDERS: Emergency Provider Emergency Medicine Emergency Medical Services; PCP Internal Medicine; Visit Provider Internal Medicine | DX: R07.9 Chest pain, unspecified (principal) | CPT/HCPCS: 93010 ==

== ENCOUNTER → 2024-06-16 15:37 | Outpatient (BNV) | payer OTHER, SELFPAY | PROVIDERS: PCP Internal Medicine; Visit Provider Radiology Diagnostic Radiology | DX: R07.9 Chest pain, unspecified (principal) | CPT/HCPCS: 71046 ==

== ENCOUNTER → 2024-07-07 15:24 | Outpatient (BNVA) | payer OTHER, SELFPAY | PROVIDERS: PCP Internal Medicine | DX: F41.1 Generalized anxiety disorder (principal); F32.A Depression, unspecified; R42 Dizziness and giddiness; E78.5 Hyperlipidemia, unspecified | CPT/HCPCS: 96127 ==

== ENCOUNTER 2024-07-07 15:30 | Outpatient (AMB) | payer OTHER, SELFPAY ==
[2024-07-07 15:41] VITALS: BP 120/74; PULSE 72; RESP 18; O2SAT 96; BMI 20.3
--- NOTE | 2024-07-07 15:41 | MHC.PC.OV ---
Vital Signs 07/07/24 15:41 Height 5 ft Weight 104 lb BMI 20.3 BP 120/74 Blood Pressure Location Lt brachial Position Sitting Respiration 18 Pulse 72 Pulse Source Pulse Oximeter Pulse Oximetry (%) 96 Oxygen Delivery Method Room Air Intake Visit Reasons: anxiety, depression, not feeling herself Intake Note: Pt is here today for a sick visit. Pt c/o anxiety, depression. Allergies atorvastatin Adverse Reaction (Unknown, Verified 07/07/24 16:27) muscle pain Medication List - Last Reconciled 07/07/24 by Anne-Marie Daniel MD rosuvastatin 5 mg PO Q OTHER DAY Tobacco use date assessed: 07/07/24 Dental Screening Dental Screen Date: 07/07/24 Did you have a dental visit in the last 12 months?: Yes Did you have a dental problem in the last 6 months where you did not have access to dental care?: No Was dental information given to patient?: Patient has dentist HPI anxiety, depression, not feeling herself HPI Details - The patient is a 63-year-old female, accompanied by her daughter complaining of feeling anxious all the time, and does not feel like herself, weak, feels dizzy all the time. - had a recent ER visit complaining of chest symptoms, labs, ECGs , urinalysis and bloodwork completed, all came back within normal - complaining of persistent feelings of being unwell, lightheadedness exacerbates anxiety. Stop taking her sertraline as it was making her more dizzy. Patient states that she has also been on escitalopram in the past which caused increased agitation - Reports of not leaving the house much due to anxiety, currently only taking only rosuvastatin for her lipids - states that she has been losing weight despite healthy eating, but when asked what she has been eating she is only eating a yogurt in the morning before going to work, soup and a light sound during lunch and a light supper. 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 -has been referred to see a therapist in the past but did not go to appointment as she states that reviewed online regarding the therapist at [facility] were not good. [facility] Medical History (Updated 07/07/24 @ 16:33 by Anne-Marie Daniel MD) Anxiety with depression OCD (obsessive compulsive disorder) Anemia Intermittent lightheadedness Mammogram declined Papanicolaou smear declined Generalized anxiety disorder Hiatal hernia with GERD Anal fissure Dyslipidemia Surgical History (Reviewed 07/07/24 @ 15:42 by Gerhard Matamoros [facility]) S/P anal fissurectomy Family History (Reviewed 07/07/24 @ 15:42 by Gerhard Matamoros [facility]) Father Hx of coronary artery disease Hx of hyperlipidemia Mother Hx of hyperlipidemia Hx of thyroid cancer Brother Hx of hyperlipidemia Social History (Reviewed 07/07/24 @ 15:42 by Gerhard Matamoros [facility]) Housing: House Alcohol intake: current Patient Tobacco Use Status: Former Tobacco user Years Smoked: 25yrs e-Cigarette/Vaping Use: Never Used service: No Current occupational status: employed Cognitive needs: No Hearing needs: No Vision needs: No Questionnaire PHQ-9 Over the last 2 weeks, how often have you been bothered by any of the following problems? 1. Little interest or pleasure in doing things: nearly every day 2. Feeling down, depressed, or hopeless: nearly every day 3. Trouble falling or staying asleep, or sleeping too much: nearly every day 4. Feeling tired or having little energy: nearly every day 5. Poor appetite or overeating: nearly every day 6. Feeling bad about yourself - or that you are a failure or have let yourself or your family down: nearly every day 7. Trouble concentrating on things, such as reading the newspaper or watching television: nearly every day 8. Moving or speaking so slowly that other people could have noticed. Or the opposite - being so fidgety or restless that you have been moving around a lot more than usual: nearly every day 9. Thoughts that you would be better off or of hurting yourself in some way: nearly every day Total score: 27 Depression Screening Interpretation: Positive Depression Screening Done: Yes 86726 - PHQ-9 Billing: Yes Source: Developed by Drs. Johny Bryan, Melissa Ayala, Rodger Hunter and colleagues, with an educational azalea from [employer]. Thrive Questionnaire Date Thrive assessed: 07/07/24 I am a: Patient What is your living situation today?: I have a steady place to live Within the past 12 months, did the food you bought not last and you didn't have the money to get more?: Never true Within the past 12 months, did you worry whether your food would run out before you got money to buy more?: Never true Do you have trouble paying for medicines?: No Do you have trouble getting transportation to medical appointments?: No Do you have trouble paying your heating and electricity bill?: No Do you have trouble taking care of your child, family member or friend?: No Do you have trouble with day-to-day activities such as bathing, preparing meals, shopping, managing finances, etc.?: No Are you currently unemployed and looking for a job?: No Are you interested in more education?: No Please select the resources that you would like help with: Housing/Chcf Currently or been in a relationship where the following occur: I choose not to answer THRIVE Score: 0 AUDIT C Alcohol Use Questionnaire (AUDIT-C) 1. How often do you have a drink containing alcohol?: Never 3. How often do you have six or more drinks on one occasion?: Never Total Score: 0 Score Reviewed/Action Taken: Yes PRINCE-7 AMB Questionnaire PRINCE-7 Date PRINCE - 7 assessed: 07/07/24 Feeling nervous, anxious, or on edge: 3 = Nearly every day Not being able to stop or control worryin = Nearly every day Worrying too much about different things: 3 = Nearly every day Trouble relaxin = Nearly every day Being so restless that it is hard to sit still: 3 = Nearly every day Becoming easily annoyed or irritable: 0 = Not at all Feeling afraid as if something awful might happen: 3 = Nearly every day Total PRINCE-7 score (0-4 normal; 5-9 mild; 10-14 moderate; 15-21 severe): 18 Source: Developed by Drs. Johny Bryan, Melissa Ayala, Rodger Hunter and colleagues, with an educational azalea from [employer]. PRINCE-7 Assessment Billing PRINCE-7 Assessment Tool: PRINCE-7 Assessment 11325 Review of Systems Const Reports fatigue, Denies headache(s), Reports lethargy, Reports malaise and Reports weight loss Eyes Reports no additional complaints ENT Reports no additional complaints, Reports Normal hearing present and Denies headache(s) Card Denies chest pain, Denies syncope, Denies edema, Reports lightheadedness, Denies palpitations and Denies dyspnea Resp Denies dyspnea GI Reports no additional complaints Reports no additional complaints Musc Reports no additional complaints Neuro Reports Normal hearing present, Denies confusion, Denies syncope and Denies headache(s) Psych Denies confusion Endo Reports fatigue and Denies palpitations Kuldip/Lymph Reports no additional complaints Physical exam (Primary Care) Vital Signs: Last Vital Signs Pulse 72 07/07/24 15:41 Resp 18 07/07/24 15:41 BP 120/74 07/07/24 15:41 Pulse Ox 96 07/07/24 15:41 Oxygen Delivery Method Room Air 07/07/24 15:41 BMI result Body Mass Index 20.3 Tobacco/Smoking Status: Tobacco use Status Tobacco use date assessed 07/07/24 07/07/24 15:42 Patient Tobacco Use Status Former Tobacco user 07/07/24 15:42 e-Cigarette/Vaping Use Never Used 07/07/24 15:42 Depression Screening Interpretation: Positive Thrive Assessment: Date of Thrive Assessment Date Thrive assessed 07/07/24 07/07/24 15:42 Currently or been in a relationship where the following occur: I choose not to answer Const Other: Alert oriented x3, no acute cardiorespiratory distress, normal gait, has been accompanying patient General: anxious and tired appearing; No confusion Nutritional Appearance: thin Orientation/consciousness: patient oriented x3 and No confusion HENMT Head: Yes normocephalic General nose exam: Normal external nose present and No nasal discharge present Face and sinus: Yes face symmetric Mouth: Normal oral and palatal mucosa present and moist mucous membranes Eyes General: appearance normal, both eyes and all related structures Neck Neck: Yes normal visual inspection, Yes full ROM, Yes no lymphadenopathy and Yes supple Thyroid: Thyroid normal Resp Effort & Inspection: normal respiratory effort and able to speak in complete sentences Auscultation: clear to auscultation bilaterally Cardio Other: S1-S2 present regular rate and rhythm GI Inspection: Yes normal to inspection Palpation (GI): Soft to palpation, nontender, no guarding and no masses Auscultation: normal bowel sounds General: Yes no CVA tenderness Back/Spine/Pelvis Back: no CVA tenderness and No back tenderness Skin General skin exam: no rashes or lesions noted Neuro General: patient oriented x3, gait normal, tone normal, moves all extremities, no focal motor deficits, CN's II-XI intact bilaterally and No confusion Cranial nerves: Yes Normal hearing present Cognition (Neuro): normal cognition Gait exam (Neuro): Normal gait present Romberg Test: Negative Extrem General: Yes full ROM, Yes no joint enlargement, Yes no pedal edema and Yes normal gait Psych Appearance: grossly normal Mental Status: mental status grossly normal Speech and movement: Normal speech and movement present Affect: Anxious affect present Attitude: cooperative Thought process: Normal thought process present Thought content: Normal thought content present Results Reviewed Results Reviewed: Name: Ny Baltazar Age/Sex: 63/F : 1960 Unit#: [id number] Attend Dr: Josselin Mckeon MD Re06/16/24 Status: DEP ER Location: [facility] Disch: SPEC : [id number] GRECIA: 06/16/24160 STATUS: COMP REQ : [id number] RECD: 06/16/24-[address]: Sally Johns COMP: 06/16/24-1634 ENTERED: 06/16/24-[address]: Anne-Marie Daniel MD ORDERED: Liver Panel, BMP, MG Test Result Flag Reference Sodium 139 135-145 mmol/L Potassium 4.4 3.3-5.1 mmol/L CL 104 96-108 mmol/L CO2 29 22-29 mmol/L Gap 10 L 12-20 BUN 15 9-16 mg/dL Creat 0.83 0.5-1.4 mg/dL Estimated CrCl 52.0 Provided height and weight: 154.94 cm, 47.5 kg. eGFR (calculated from the MDRD study equation) and eCrCl (calculated from the Cockcroft-Gault equation) are based on different parameters and may not yield comparable results. If eCrCl result is absurd, please check patient's height/weight. eGFR > 60 Chronic Kidney Disease: Estimated GFR < 60 mL/min/1.73m2 Severe Kidney Disease: Estimated GFR < 15 mL/min/1.73m2 Glucose, Random 91 60-115 mg/dL CA 9.8 8.4-10.2 mg/dL Magnesium 1.9 1.6-2.6 mg/dL Total Bili 0.4 0.0-1.0 mg/dL Direct Bili 0.1 0.0-0.5 mg/dL AST (GOT) 21 5-31 U/L ALT (GPT) 12 0-31 U/L Protein, Total 7.2 6.5-8.0 g/dL Alb 4.5 3.5-5.0 g/dL Alk Phos 60 39-117 U/L Name: Ny Baltazar Age/Sex: 63/F : 1960 Unit#: [id number] Attend Dr: Josselin Mckeon MD Re06/16/24 Status: DEP ER Location: [facility] Disch: SPEC : [id number] GRECIA: 06/16/24 STATUS: COMP REQ : [id number] RECD: 06/16/[address]: Sally Johns COMP: 06/16/24 ENTERED: 06/16/[address]: Anne-Marie Daniel MD ORDERED: CBC Auto Diff Test Result Flag Reference WBC 6.0 4.8-10.8 X10*3/uL RBC 4.10 L 4.20-5.50 X10*6/uL HGB 12.0 12.0-16.0 g/dl HCT 36.9 L 37.0-47.0 % MCV 90.0 80.0-98.0 fL MCH 29.3 27.0-33.0 pg MCHC 32.5 31.0-35.0 g/dl RDW 12.5 11.0-16.0 % PLT 177 160-400 X10*3/uL MPV 10.1 9.4-12.3 fL Neut Pct Auto 68.8 45-73 % ImGran Pct Auto 0.3 0.0-0.4 % Lymp Pct Auto 22.4 20-40 % Cuming Pct Auto 7.0 2-11 % Eos Pct Auto 0.8 0-4 % Baso Pct Auto 0.7 0-2 % NRBC Pct Auto 0.0 0.0-0.2 /100WBC ANC Neut Abs # 4.2 2.0-8.3 x10*3/uL ImGran Abs Auto 0.02 0.00-0.03 X10*3/uL Lymph Abs Auto 1.4 1.2-4.9 X10*3/uL Cuming Abs Auto 0.4 0.1-1.2 X10*3/uL Eos Abs Auto 0.1 0.0-0.4 X10*3/uL Baso Abs Auto 0.0 0.0-0.2 X10*3/uL NRBC Abs Auto 0.000 0.0-0.012 X10*3/uL Coding Level of Care Code Est Pt Level 4 (44179) Diagnoses Anxiety with depression F41.8 Additional Codes PRINCE-7 Assessment Billing - PRINCE-7 Assessment Tool: PRINCE-7 Assessment 98282 ([id number]) PHQ-9 - 49125 - PHQ-9 Billing: Yes ([id number]) Assessment & Plan Assessment & Plan (1) Anxiety with depression: Code(s): F41.8 - Other specified anxiety disorders Category: Medical Plan Advised patient advised to start taking buspirone initially at 5 mg once a day and may increase dosing frequency to twice a day or 3 times a day depending on her anxiety level. Declines referral for therapy, but wants to go and be seen by Psychiatry for further evaluation. Psychiatric referral outpatient ordered. She has already an appointment in September 2024 for her physical exa Orders: Referrals Psychiatry Referral F41.1 - Generalized anxiety disorder Medications: New buspirone 5 mg PO TID 90 tabs 1RF F41.1 - Generalized anxiety disorder
== END 2024-07-07 16:16 | disposition home or self-care (01) ==
LOC: HO.HMCC 15:30
PROVIDERS: PCP Internal Medicine; Visit Provider Internal Medicine
DX: F41.8 Other specified anxiety disorders (principal)

== ENCOUNTER 2024-08-24 08:42 | Outpatient (AMB) | payer OTHER, SELFPAY ==
--- NOTE | 2024-08-24 09:02 | A.OFFPC_ITS ---
Vital Signs 08/24/24 09:18 Height 5 ft Weight 104 lb BMI 20.3 BP 94/60 Blood Pressure Location Lt brachial Position Sitting Respiration 16 Pulse 61 Pulse Source Pulse Oximeter Temp 97.8 F Temp Source Oral Pulse Oximetry (%) 96 Intake Visit Reasons: Annual PE Intake Note: Pt is here today for her PE Allergies atorvastatin Adverse Reaction (Unknown, Verified 08/29/24 23:19) muscle pain Medication List - Last Reconciled 08/29/24 by Anne-Marie Daniel MD buspirone 5 mg PO TID rosuvastatin 5 mg PO Q OTHER DAY Tobacco use date assessed: 08/24/24 Dental Screening Dental Screen Date: 08/24/24 Did you have a dental visit in the last 12 months?: No Did you have a dental problem in the last 6 months where you did not have access to dental care?: No Was dental information given to patient?: Patient has dentist HPI Annual PE HPI Details 63-year-old lady with history of dyslipi demia, generalized anxiety dis order, OCD, here today for her physical exam. She is currently taking rosuvastatin 5 mg taken 1 tablet every other day, and takes buspirone mg 1 tablet 3 times a day which has been helping control her anxiety attacks. She refuses to get any screening for cervical cancer or breast cancer, does not want PFSH Medical History Anxiety with depression OCD (obsessive compulsive disorder) Anemia Intermittent lightheadedness Mammogram declined Papanicolaou smear declined Generalized anxiety disorder Hiatal hernia with GERD Anal fissure Dyslipidemia Surgical History S/P anal fissurectomy Family History Father Hx of coronary artery disease Hx of hyperlipidemia Mother Hx of hyperlipidemia Hx of thyroid cancer Brother Hx of hyperlipidemia Social History Housing: House Alcohol intake: current Patient Tobacco Use Status: Former Tobacco user Years Smoked: 25yrs e-Cigarette/Vaping Use: Never Used service: No Current occupational status: employed Cognitive needs: No Hearing needs: No Vision needs: No Questionnaire PHQ-9 Over the last 2 weeks, how often have you been bothered by any of the following problems? 1. Little interest or pleasure in doing things: not at all 2. Feeling down, depressed, or hopeless: not at all 3. Trouble falling or staying asleep, or sleeping too much: several days 4. Feeling tired or having little energy: not at all 5. Poor appetite or overeating: not at all 6. Feeling bad about yourself - or that you are a failure or have let yourself or your family down: not at all 7. Trouble concentrating on things, such as reading the newspaper or watching television: not at all 8. Moving or speaking so slowly that other people could have noticed. Or the opposite - being so fidgety or restless that you have been moving around a lot more than usual: not at all 9. Thoughts that you would be better off or of hurting yourself in some way: not at all Total score: 1 Depression Screening Interpretation: Negative Depression Screening Done: Yes 97779 - PHQ-9 Billing: Yes Source: Developed by Drs. Johny Bryan, Melissa Ayala, Rodger Hunter and colleagues, with an educational azalea from [employer]. Thrive Questionnaire Date Thrive assessed: 08/24/24 Currently or been in a relationship where the following occur: I choose not to answer THRIVE Score: 0 AUDIT C Alcohol Use Questionnaire (AUDIT-C) 1. How often do you have a drink containing alcohol?: Never Total Score: 0 PRINCE-7 AMB Questionnaire PRINCE-7 Date PRINCE - 7 assessed: 08/24/25 Feeling nervous, anxious, or on edge: 1 = Several days Not being able to stop or control worryin = Not at all Worrying too much about different things: 1 = Several days Trouble relaxin = Not at all Being so restless that it is hard to sit still: 0 = Not at all Becoming easily annoyed or irritable: 0 = Not at all Feeling afraid as if something awful might happen: 0 = Not at all Total PRINCE-7 score (0-4 normal; 5-9 mild; 10-14 moderate; 15-21 severe): 2 Source: Developed by Drs. Johny Bryan, Melissa Ayala, Rodger Hunter and colleagues, with an educational azalea from [employer]. PRINCE-7 Assessment Billing PRINCE-7 Assessment Tool: PRINCE-7 Assessment 92309 Review of Systems Const Denies fatigue, Denies fever(s), Denies headache(s), Denies poor appetite and Denies weakness Eyes Denies change in vision ENT Reports Normal hearing present, Denies dizziness, Denies headache(s), Denies nasal congestion and Denies tinnitus Card Reports no additional complaints Resp Reports no additional complaints GI Denies change in bowel habits, Reports heartburn (Occasional), Denies nausea and Denies vomiting Reports no additional complaints Musc Reports no additional complaints Skin/Breast Denies breast swelling, Denies breast pain, Denies breast mass, Denies lesions and Denies rash Neuro Reports no additional complaints, Reports Normal hearing present, Denies confusion, Denies dizziness, Denies headache(s), Denies focal weakness and Denies weakness Psych Reports change in appetite, Denies confusion, Reports irritability and Reports anhedonia Endo Reports no additional complaints and Denies fatigue Kuldip/Lymph Reports no additional complaints Aller/Immun Reports no additional complaints Physical exam (Primary Care) Vital Signs: Last Vital Signs Temp 97.8 F 08/24/24 09:18 Pulse 61 08/24/24 09:18 Resp 16 08/24/24 09:18 BP 94/60 08/24/24 09:18 Pulse Ox 96 08/24/24 09:18 BMI result Body Mass Index 20.3 Tobacco/Smoking Status: Tobacco use Status Tobacco use date assessed 08/24/24 08/24/24 09:04 Patient Tobacco Use Status Former Tobacco user 08/24/24 09:02 e-Cigarette/Vaping Use Never Used 08/24/24 09:02 Depression Screening Interpretation: Negative Thrive Assessment: Date of Thrive Assessment Date Thrive assessed 08/24/24 08/24/24 09:02 Currently or been in a relationship where the following occur: I choose not to answer Const Other: Alert oriented x3, no acute cardiorespiratory distress, normal gait, has been accompanying patient General: anxious and tired appearing; No confusion Nutritional Appearance: thin Orientation/consciousness: patient oriented x3 and No confusion HENMT Head: Yes normocephalic General nose exam: Normal external nose present and No nasal discharge present Face and sinus: Yes face symmetric Mouth: Normal oral and palatal mucosa present and moist mucous membranes Eyes General: appearance normal, both eyes and all related structures Neck Neck: Yes normal visual inspection, Yes full ROM, Yes no lymphadenopathy and Yes supple Thyroid: Thyroid normal Chest Breast/axilla inspection: normal inspection of the breasts Breast/axilla palpation: normal palpation of the breasts Resp Effort & Inspection: normal respiratory effort and able to speak in complete sentences Auscultation: clear to auscultation bilaterally Cardio Other: S1-S2 present regular rate and rhythm GI Inspection: Yes normal to inspection Palpation (GI): Soft to palpation, nontender, no guarding and no masses Auscultation: normal bowel sounds General: Yes no CVA tenderness Back/Spine/Pelvis Back: no CVA tenderness and No back tenderness Skin General skin exam: no rashes or lesions noted Neuro General: patient oriented x3, gait normal, tone normal, moves all extremities, no focal motor deficits, CN's II-XI intact bilaterally and No confusion Cranial nerves: Yes Normal hearing present Cognition (Neuro): normal cognition Gait exam (Neuro): Normal gait present Romberg Test: Negative Extrem General: Yes full ROM, Yes no joint enlargement, Yes no pedal edema and Yes normal gait Psych Appearance: grossly normal Mental Status: mental status grossly normal Speech and movement: Normal speech and movement present Attitude: cooperative Thought process: Normal thought process present Thought content: Normal thought content present Results Reviewed Results Reviewed: Name: Ny Baltazar Age/Sex: 63/F : 1960 Unit#: [id number] Attend Dr: Josselin Mckeon MD Re06/16/24 Status: [facility]P [facility] Disch: SPEC : [id number] GRECIA: 06/16/24 STATUS: COMP REQ : [id number] RECD: 06/16/[address]: Sally Johns COMP: 06/16/24 ENTERED: 06/16/[address] [facility] DR: Anne-Marie Daniel MD ORDERED: CBC Auto Diff Test Result Flag Reference WBC 6.0 4.8-10.8 X10*3/uL RBC 4.10 L 4.20-5.50 X10*6/uL HGB 12.0 12.0-16.0 g/dl HCT 36.9 L 37.0-47.0 % MCV 90.0 80.0-98.0 fL MCH 29.3 27.0-33.0 pg MCHC 32.5 31.0-35.0 g/dl RDW 12.5 11.0-16.0 % PLT 177 160-400 X10*3/uL MPV 10.1 9.4-12.3 fL Neut Pct Auto 68.8 45-73 % ImGran Pct Auto 0.3 0.0-0.4 % Lymp Pct Auto 22.4 20-40 % [place] Pct Auto 7.0 2-11 % Eos Pct Auto 0.8 0-4 % Baso Pct Auto 0.7 0-2 % NRBC Pct Auto 0.0 0.0-0.2 /100WBC ANC Neut Abs # 4.2 2.0-8.3 x10*3/uL ImGran Abs Auto 0.02 0.00-0.03 X10*3/uL Lymph Abs Auto 1.4 1.2-4.9 X10*3/uL [place] Abs Auto 0.4 0.1-1.2 X10*3/uL Eos Abs Auto 0.1 0.0-0.4 X10*3/uL Baso Abs Auto 0.0 0.0-0.2 X10*3/uL NRBC Abs Auto 0.000 0.0-0.012 X10*3/uL Name: Ny Baltazar Age/Sex: 63/F : 1960 Unit#: [id number] Attend Dr: Josselin Mckeon MD Re06/16/24 Status: DEP ER Location: [facility] Disch: SPEC : [id number] GRECIA: 06/16/24 STATUS: COMP REQ : [id number] RECD: 06/16/24-[address]: Sally Johns COMP: 06/16/24-163 ENTERED: 06/16/24-[address]: Anne-Marie Daniel MD ORDERED: Liver Panel, BMP, MG Test Result Flag Reference Sodium 139 135-145 mmol/L Potassium 4.4 3.3-5.1 mmol/L CL 104 96-108 mmol/L CO2 29 22-29 mmol/L Gap 10 L 12-20 BUN 15 9-16 mg/dL Creat 0.83 0.5-1.4 mg/dL Estimated CrCl 52.0 Provided height and weight: 154.94 cm, 47.5 kg. eGFR (calculated from the MDRD study equation) and eCrCl (calculated from the Cockcroft-Gault equation) are based on different parameters and may not yield comparable results. If eCrCl result is absurd, please check patient's height/weight. eGFR > 60 Chronic Kidney Disease: Estimated GFR < 60 mL/min/1.73m2 Severe Kidney Disease: Estimated GFR < 15 mL/min/1.73m2 Glucose, Random 91 60-115 mg/dL CA 9.8 8.4-10.2 mg/dL Magnesium 1.9 1.6-2.6 mg/dL Total Bili 0.4 0.0-1.0 mg/dL Direct Bili 0.1 0.0-0.5 mg/dL AST (GOT) 21 5-31 U/L ALT (GPT) 12 0-31 U/L Protein, Total 7.2 6.5-8.0 g/dL Alb 4.5 3.5-5.0 g/dL Alk Phos 60 39-117 U/L Coding Level of Care Code Est Pt Prev Care 40-64y(07085) Diagnoses Annual visit for general adult medical examination with abnormal findings Z.01 Papanicolaou smear declined Z53.20 Dyslipidemia E78.5 Anxiety with depression F41.8 Mammogram declined Z53.20 Increased frequency of urination R35.0 Additional Codes PHQ-9 - 35304 - PHQ-9 Billing: Yes ([id number]) PRINCE-7 Assessment Billing - PRINCE-7 Assessment Tool: PRINCE-7 Assessment 78557 ([id number]) Assessment & Plan Assessment & Plan (1) Annual visit for general adult medical examination with abnormal findings: Code(s): Z00.01 - Encounter for general adult medical examination with abnormal findings Plan: Will check appropriate labs. Recommended dental visit every 6 months and regular eye exams, at least every 2 years. Take adequate calcium in diet and vitamin-D 3 at 2000 IU per cap once a day, in addition to weight-bearing exercises to help maintain good muscle tone and weight control. Instructed to do self-breast exam, and recommended to get yearly mammogram, but patient declined does not want to get any vaccines nor does she want to get any colon cancer screening done (2) Papanicolaou smear declined: Code(s): Z53.20 - Procedure and treatment not carried out because of patient's decision for unspecified reasons Category: Medical Plan: Refuses to get pelvic exam and Pap smear (3) Dyslipidemia: Code(s): E78.5 - Hyperlipidemia, unspecified Category: Medical Plan: Ordered, continued on rosuvastatin at same dose (4) Anxiety with depression: Code(s): F41.8 - Other specified anxiety disorders Category: Medical Plan: Anxiety and mood swings better controlled on buspirone 5 mg taken 1 tablet 3 times a day (5) Mammogram declined: Code(s): Z53.20 - Procedure and treatment not carried out because of patient's decision for unspecified reasons Category: Medical Plan: Refused any breast cancer screening (6) Increased frequency of urination: Code(s): R35.0 - Frequency of micturition Plan: Urinalysis with reflex culture and sensitivity ordered Orders: Orders Vitamin D 25-OH Total 08/24/24 R35.0 - Frequency of micturition, Z13.220 - Encounter for screening for lipoid disorders Lipid Panel 08/24/24 R35.0 - Frequency of micturition, Z13.220 - Encounter for screening for lipoid disorders UA CC w/rflx Micro + Cult 08/24/24 R35.0 - Frequency of micturition, Z13.220 - Encounter for screening for lipoid disorders
[2024-08-24 09:18] VITALS: BP 94/60; PULSE 61; RESP 16; TEMP 36.6; O2SAT 96; BMI 20.3
== END 2024-08-24 12:03 | disposition home or self-care (01) ==
LOC: HO.HMCC 08:43
PROVIDERS: PCP Internal Medicine; Visit Provider Internal Medicine
DX: Z00.01 Encounter for general adult medical examination with abnormal findings (principal); Z53.20 Procedure and treatment not carried out because of patient's decision for unspecified reasons; E78.5 Hyperlipidemia, unspecified; F41.8 Other specified anxiety disorders; R35.0 Frequency of micturition

== ENCOUNTER 2024-08-24 08:42 | Outpatient (REF) | payer OTHER, SELFPAY ==
[2024-08-24 13:23] LABS: Appearance Urine Turbid; Glucose Urine UA Negative (Negative); PH 6.0 (5.0-9.0); Specific Gravity - Urine 1.025 (1.005-1.025); UMIC TRIGGER UACC YES
[2024-08-24 13:59] LABS: Cholesterol 207 mg/dL (<200); HDL Cholesterol 83 mg/dL (>40); Triglycerides 87 mg/dL (<150)
== END 2024-08-24 08:43 | disposition home or self-care (01) ==
LOC: HO.HMGCLDS 08:42
PROVIDERS: PCP Internal Medicine; Visit Provider Internal Medicine
DX: Z00.01 Encounter for general adult medical examination with abnormal findings (principal); R35.0 Frequency of micturition; E78.5 Hyperlipidemia, unspecified; F41.8 Other specified anxiety disorders; Z79.899 Other long term (current) drug therapy; Z13.220 Encounter for screening for lipoid disorders; Z13.31 Encounter for screening for depression; Z13.30 Encounter for screening examination for mental health and behavioral disorders, unspecified
CPT/HCPCS: 36415; 80061; 81001; 82306; 96127

== ENCOUNTER 2024-11-11 07:48 | Outpatient (AMB) | payer OTHER, SELFPAY ==
--- NOTE | 2024-11-11 07:55 | A.OFFVIS_ITS ---
Intake Visit Reasons: Microscopic hematuria Intake Note: Patient is present for MICROSCOPIC HEMATURIA Urology Medication:NONE Antibiotic Allergy:NONE Blood Thinner:NONE TODAY'S PVR:27ML'S Relations Director Required: No Allergies atorvastatin Adverse Reaction (Unknown, Verified 11/11/24 08:31) muscle pain Medication List - Last Reconciled 11/11/24 by KALE Abdi buspirone 5 mg PO TID lorazepam 0.5 mg PO DAILY PRN meclizine 25 mg PO BID PRN rosuvastatin 5 mg PO Q OTHER DAY HPI Comments Details: Ny is a 63-year-old female patient of Dr. Daniel. She has a H microhematuria, anxiety, depression, OCD, anemia, hiatal hernia with GERD, anal fissure, and dyslipidemia. She presents to the office today as a new patient for microscopic hematuria. In discussion with the patient today she reports having followed up with her PCP and microscopic hematuria was noted and recommendations were made for urology referral for further assessment evaluation. When asked she does report a previous history of nicotine dependence. She reports smoking cigarettes for approximately 20 years. She reports when she was smoking she smoked 4-5 cigarettes per day. We did discussed at length potential causes of microscopic hematuria as well as further workup in risks and benefits of these interventions. When asked she denies any bothersome urinary issues or concerns. In office urinalysis results reviewed with the patient today. 2+ microscopic hematuria. I discussed reasons for blood in the urine may include but are not limited to kidney stones, cancer in the urinary tract, kidney stone disease or inflammatory conditions of the urinary tract. I have discussed workup to include cystoscopy evaluation. She denies urinary urgency, urinary frequency, incontinence, nocturia, gross/visible hematuria, dysuria, foul smelling urine, changes to urinary stream, flank pain, fever, and or chills. She is happy with her current voiding parameters. All questions were answered to the best of my ability. She otherwise offers no other issues or concerns at this time. [facility] Medical History Microhematuria Anxiety with depression OCD (obsessive compulsive disorder) Anemia Intermittent lightheadedness Mammogram declined Papanicolaou smear declined Generalized anxiety disorder Hiatal hernia with GERD Anal fissure Dyslipidemia Surgical History S/P anal fissurectomy Family History Father Hx of coronary artery disease Hx of hyperlipidemia Mother Hx of hyperlipidemia Hx of thyroid cancer Brother Hx of hyperlipidemia Social History Housing: House Alcohol intake: current Patient Tobacco Use Status: Former Tobacco user Years Smoked: 25yrs e-Cigarette/Vaping Use: Never Used service: No Current occupational status: employed Cognitive needs: No Hearing needs: No Vision needs: No Review of Systems Const All systems reviewed & are unremarkable except as noted in HPI and below Physical Exam Const General: cooperative, healthy appearing, comfortable, no acute distress, well developed, alert and awake Orientation/consciousness: patient oriented x3 Limitations: no limitations HEENT Head: Yes normal to inspection, Yes normocephalic and Yes atraumatic Ears: hearing grossly normal bilaterally Eyes General: appearance normal, both eyes and all related structures Neck Neck: Yes normal visual inspection and Yes trachea midline Chest Chest palpation & inspection: normal inspection of the chest Resp Effort & Inspection: normal respiratory effort and able to speak in complete sentences Cardio Rate: regular rate GI Inspection: Yes normal to inspection General: Yes no CVA tenderness Back/Spine/Pelvis Back: no CVA tenderness Skin General skin exam: no rashes or lesions noted Neuro General: patient oriented x3 Extrem General: Yes normal to inspection Psych Appearance: grossly normal and well kempt Mental Status: mental status grossly normal Speech and movement: Normal speech and movement present and Clear speech present Affect: normal affect Attitude: cooperative Thought process: Normal thought process present Thought content: Normal thought content present Insight: Fair insight present (Psych) Judgement: Fair judgement present (Psych) Office Procedures Post Void Residual Post Residual Void Post Void Residual (PVR): 27 35032-Qppe Void Residual by ultrasound Results AMB Urinalysis, Automated UA Leukoctes 0 Javier/uL Last Edit by JOVANNA Hill on 11/11/24 08:14 UA Nitrite Negative Last Edit by JOVANNA Hill on 11/11/24 08:14 UA Urobilinogen 0.2 mg/dL Last Edit by JOVANNA Hill on 11/11/24 08:1 4 UA Protein 0 mg/dL Last Edit by Xander Neely [facility] on 11/11/24 08:14 UA pH 6.0 Last Edit by Xander Neely [facility] on 11/11/24 08:14 UA Blood 80 Moise/uL Last Edit by Xander Neely [facility] on 11/11/24 08:14 UA Specific [place] 1.015 Last Edit by Xander Neely [facility] on 11/11/24 08: 14 UA Ketone Negative Last Edit by Xander Neely [facility] on 11/11/24 08:14 UA Bilirubin 0 mg/dL Last Edit by Xander Neely [facility] on 11/11/24 08:14 UA Glucose 0 mg/dL Last Edit by Xander Neely [facility] on 11/11/24 08:14 Results Reviewed Results Reviewed: Laboratory Last Values Urine pH (Auto) 6.0 11/11/24 08:13 Specific [place] (Auto) 1.015 11/11/24 08:13 Urine Protein (Auto) 0 mg/dL 11/11/24 08:13 Glucose (UA)(Auto) 0 mg/dL 11/11/24 08:13 Urine Ketones (Auto) Negative 11/11/24 08:13 Urine Blood (Auto) 80 Moise/uL 11/11/24 08:13 Urine Nitrite (Auto) Negative 11/11/24 08:13 Urine Bilirubin (Auto) 0 mg/dL 11/11/24 08:13 Urine Urobilinogen (Auto) 0.2 mg/dL 11/11/24 08:13 Leukocyte Esterase (Auto) 0 Javier/uL 11/11/24 08:13 Assessment & Plan Assessment & Plan (1) Microhematuria: Code(s): R31.29 - Other microscopic hematuria Category: Medical (2) History of nicotine dependence: Code(s): Z87.891 - Personal history of nicotine dependence Category: Medical Plan In office urinalysis results reviewed with the patient today; as noted above; will send for urine cytology. We did discussed at length potential causes of microscopic hematuria as well as further interventions and risks and benefits of these interventions. She currently denies any bothersome urinary issues or concerns. She reports be happy with current voiding parameters. Will obtain CT urogram for further assessment evaluation. Information provided regarding cystoscopy. Patient discusses her reluctancy in cystoscopy Education provided Will obtain imaging and review and patient will think about having cystoscopy performed. Follow-up in 3-6 months with imaging; or sooner with any issues, concerns, and or questions. Orders: Orders CT urogram Today R31.0 - Gross hematuria AMB Urinalysis Automated Today Z13.9 - Encounter for screening, unspecified Urine Cytology Today R31.29 - Other microscopic hematuria Blood Urea Nitrogen Today R39.15 - Urgency of urination Creatinine Today R39.15 - Urgency of urination Patient Instructions: The patient had an opportunity to ask questions regarding the treatment plan. All questions were answered. Physical exam, labs, and imaging were discussed and reviewed in detail. As well as risks, benefits, and discussion of treatment choices. No major barriers to understanding were identified. The patient expressed understanding and agreement with the above treatment plan. The patient was made aware they should contact our office by phone for worsening of their current condition, the appearance of new symptoms, or with any quest ions or concerns. Compliance is encouraged with any medications and follow up testing that is ordered. It is a privilege to be allowed the opportunity to participate in? your urological care.? Again, if you have any questions or concerns If you have any questions or concerns please do not hesitate to contact me. The office is [phone]. This note is constructed using voice recognition software. While every effort has been made to ensure accuracy science editor errors may have been included. Yours sincerely, KALE Abdi Coding Level of Care Code New Pt Level 3 (92659) Diagnoses Microhematuria R31.29 History of nicotine dependence Z87.891 CPT Codes Post Residual Void - PVR CPT Code: 31936-Dufv Void Residual by ultrasound ([id number])
== END 2024-11-11 08:38 | disposition home or self-care (01) ==
LOC: HO.HUSH 07:49
PROVIDERS: PCP Internal Medicine; Visit Provider Nurse Practitioner Family
DX: R31.29 Other microscopic hematuria (principal); Z87.891 Personal history of nicotine dependence; Z13.9 Encounter for screening, unspecified
CPT/HCPCS: 99203

== ENCOUNTER 2024-11-11 07:48 | Outpatient (REF) | payer OTHER, SELFPAY | END 2024-11-11 07:49 | disposition home or self-care (01) | LOC: HO.LAB 07:48 | PROVIDERS: PCP Internal Medicine; Visit Provider Nurse Practitioner Family | DX: R31.29 Other microscopic hematuria (principal); R39.15 Urgency of urination; Z87.891 Personal history of nicotine dependence | CPT/HCPCS: 51798; 81003; 88112 ==

== ENCOUNTER 2024-12-10 14:27 | Outpatient (REF) | payer OTHER, SELFPAY | END 2024-12-10 14:28 | disposition home or self-care (01) | LOC: HO.HMGCLDS 14:27 | PROVIDERS: PCP Internal Medicine; Visit Provider Internal Medicine | DX: Z13.89 Encounter for screening for other disorder (principal) ==

== ENCOUNTER 2024-12-18 07:25 | Outpatient (REF) | payer OTHER, SELFPAY ==
[2024-12-18 11:15] LABS: Appearance Urine Clear; Glucose Urine UA Negative (Negative); PH 6.5 (5.0-9.0); Specific Gravity - Urine 1.015 (1.005-1.025); UMIC TRIGGER UACC YES
[2024-12-18 11:28] LABS: Blood Urea Nitrogen 15 mg/dL (9-16); Estimated Glomerular Filt Rate > 60
== END 2024-12-18 07:26 | disposition home or self-care (01) ==
LOC: HO.HMGCLDS 07:25
PROVIDERS: Absent Provider Nurse Practitioner Family; PCP Internal Medicine; Visit Provider Internal Medicine
DX: R39.15 Urgency of urination (principal); R31.29 Other microscopic hematuria
CPT/HCPCS: 36415; 81001; 82565; 84520

== ENCOUNTER 2025-01-17 14:10 | Outpatient (AMB) | payer OTHER, SELFPAY ==
[2025-01-17 14:26] VITALS: BP 90/62; PULSE 69; RESP 16; TEMP 36.6; O2SAT 98; BMI 21.1
--- NOTE | 2025-01-17 14:26 | A.OFFPC_ITS ---
Vital Signs 01/17/25 14:26 Height 5 ft Weight 108 lb BMI 21.1 BP 90/62 Blood Pressure Location Lt brachial Position Sitting Respiration 16 Pulse 69 Pulse Source Pulse Oximeter Temp 97.8 F Temp Source Oral Pulse Oximetry (%) 98 Oxygen Delivery Method Room Air Intake Visit Reasons: Gerd Intake Note: Pt is here today to discuss acid relux she's been having Allergies atorvastatin Adverse Reaction (Unknown, Verified 01/17/25 14:47) muscle pain Medication List - Last Reconciled 01/17/25 by Anne-Marie Daniel MD buspirone 5 mg PO TID lorazepam 0.5 mg PO DAILY PRN meclizine 25 mg PO BID PRN Tobacco use date assessed: 01/17/25 Dental Screening Dental Screen Date: 01/17/25 Did you have a dental visit in the last 12 months?: No Did you have a dental problem in the last 6 months where you did not have access to dental care?: No Was dental information given to patient?: Patient has dentist HPI Gerd HPI Details The patient is a 64 year old individual presenting with a sudden onset of upper abdominal symptoms, management of hyperlipidemia, and follow-up on hematuria. The patient reports a sudden onset of upper abdominal burning and nausea, which occurs at any time of day. Previously, about two to three years ago, the patient had similar issues which resolved with famotidine, and the patient has been symptom-free until this recent episode. The patient recently tried an [id number] pack of Prilosec, which helped with the symptoms but taking it. The patient has hyperlipidemia and was taking rosuvastatin 5 mg every other day, but stopped the medication a month and a half ago. The patient believes rosuvastatin caused side effects of severe fear, anxiety, and blood in the urine. Prior cholesterol levels were noted to be well-controlled while on the medication. The patient has a history of hematuria and saw a urologist in October. A urine test on December 18 showed some blood, though it was decreasing. The urologist ordered a CT urogram and recommended a cystoscopy, neither of which the patient has completed due to significant fear and anxiety about the procedures and potential findings. [facility] Medical History (Updated 01/17/25 @ 14:52 by Anne-Marie Daniel MD) Heartburn Microhematuria Anxiety with depression OCD (obsessive compulsive disorder) Anemia Intermittent lightheadedness Mammogram declined Papanicolaou smear declined Generalized anxiety disorder Hiatal hernia with GERD Anal fissure Dyslipidemia Surgical History S/P anal fissurectomy Family History Father Hx of coronary artery disease Hx of hyperlipidemia Mother Hx of hyperlipidemia Hx of thyroid cancer Brother Hx of hyperlipidemia Social History Housing: House Alcohol intake: current Patient Tobacco Use Status: Former Tobacco user Years Smoked: 25yrs e-Cigarette/Vaping Use: Never Used service: No Current occupational status: employed Cognitive needs: No Hearing needs: No Vision needs: No Questionnaire Thrive Questionnaire Date Thrive assessed: 01/14/25 I am a: Patient What is your living situation today?: I have a steady place to live Within the past 12 months, did the food you bought not last and you didn't have the money to get more?: Never true Within the past 12 months, did you worry whether your food would run out before you got money to buy more?: Never true Do you have trouble paying for medicines?: No Do you have trouble getting transportation to medical appointments?: No Do you have trouble paying your heating and electricity bill?: No Do you have trouble taking care of your child, family member or friend?: No Do you have trouble with day-to-day activities such as bathing, preparing meals, shopping, managing finances, etc.?: No Are you currently unemployed and looking for a job?: No Are you interested in more education?: No Please select the resources that you would like help with: None Currently or been in a relationship where the following occur: No concerns reported THRIVE Score: 0 AUDIT C Alcohol Use Questionnaire (AUDIT-C) 1. How often do you have a drink containing alcohol?: Never 3. How often do you have six or more drinks on one occasion?: Never Total Score: 0 PRINCE-7 AMB Questionnaire PRINCE-7 Date PRINCE - 7 assessed: 08/24/25 Feeling nervous, anxious, or on edge: 3 = Nearly every day Not being able to stop or control worryin = Not at all Worrying too much about different things: 2 = More than half the days Trouble relaxin = Not at all Being so restless that it is hard to sit still: 0 = Not at all Becoming easily annoyed or irritable: 0 = Not at all Feeling afraid as if something awful might happen: 3 = Nearly every day Total PRINCE-7 score (0-4 normal; 5-9 mild; 10-14 moderate; 15-21 severe): 8 Source: Developed by Drs. Johny Bryan, Melissa Ayala, Rodger Hunter and colleagues, with an educational azalea from [employer]. Review of Systems Const All systems reviewed & are unremarkable except as noted in HPI and below ENT Reports Normal hearing present Neuro Reports Normal hearing present and Denies confusion Psych Denies confusion Physical exam (Primary Care) Vital Signs: Last Vital Signs Temp 97.8 F 01/17/25 14:26 Pulse 69 01/17/25 14:26 Resp 16 01/17/25 14:26 BP 90/62 01/17/25 14:26 Pulse Ox 98 01/17/25 14:26 Oxygen Delivery Method Room Air 01/17/25 14:26 BMI result Body Mass Index 21.1 Tobacco/Smoking Status: Tobacco use Status Tobacco use date assessed 01/17/25 01/17/25 14:32 Patient Tobacco Use Status Former Tobacco user 01/17/25 14:32 e-Cigarette/Vaping Use Never Used 01/17/25 14:32 Thrive Assessment: Date of Thrive Assessment Date Thrive assessed 01/14/25 01/17/25 14:32 Currently or been in a relationship where the following occur: No concerns reported Const Other: Alert oriented x3, no acute cardiorespiratory distress, normal gait, has been accompanying patient General: anxious and tired appearing; No confusion Nutritional Appearance: thin Orientation/consciousness: patient oriented x3 and No confusion HENMT Head: Yes normocephalic General nose exam: Normal external nose present and No nasal discharge present Face and sinus: Yes face symmetric Mouth: Normal oral and palatal mucosa present and moist mucous membranes Eyes General: appearance normal, both eyes and all related structures Neck Neck: Yes normal visual inspection, Yes full ROM, Yes no lymphadenopathy and Yes supple Thyroid: Thyroid normal Chest Breast/axilla inspection: normal inspection of the breasts Breast/axilla palpation: normal palpation of the breasts Resp Effort & Inspection: normal respiratory effort and able to speak in complete sentences Auscultation: clear to auscultation bilaterally Cardio Other: S1-S2 present regular rate and rhythm GI Inspection: Yes normal to inspection Palpation (GI): Soft to palpation, nontender, no guarding and no masses Auscultation: normal bowel sounds General: Yes no CVA tenderness Back/Spine/Pelvis Back: no CVA tenderness and No back tenderness Skin General skin exam: no rashes or lesions noted Neuro General: patient oriented x3, gait normal, tone normal, moves all extremities, no focal motor deficits, CN's II-XI intact bilaterally and No confusion Cranial nerves: Yes Normal hearing present Cognition (Neuro): normal cognition Gait exam (Neuro): Normal gait present Romberg Test: Negative Extrem General: Yes full ROM, Yes no joint enlargement, Yes no pedal edema and Yes normal gait Psych Appearance: grossly normal Mental Status: mental status grossly normal Speech and movement: Normal speech and movement present Attitude: cooperative Thought process: Normal thought process present Thought content: Normal thought content present Coding Level of Care Code Est Pt Level 4 (27217) Diagnoses Heartburn R12 Dyslipidemia E78.5 Microhematuria R31.29 Assessment & Plan Assessment & Plan (1) Heartburn: Code(s): R12 - Heartburn Category: Medical Plan: prescribed famotidine 40 mg daily for two months and explained that if the symptoms are not improving after the course of treatment, a referral to a manager icu for an endoscopy would be necessary. We also discussed dietary modifications, such as limiting coffee and avoiding acidic foods like Tootsie Pops, tomatoes, and oranges. (2) Dyslipidemia: Code(s): E78.5 - Hyperlipidemia, unspecified Category: Medical Plan: The patient self-discontinued rosuvastatin approximately 1.5 months ago due to a belief that it was causing severe anxiety and hematuria. The medication was noted to have been effective at controlling cholesterol levels when she was taking it regularly. The plan is to order a lipid panel in three months to re-evaluate cholesterol levels off the medication. If the cholesterol is elevated, we will discuss alternative therapies (3) Microhematuria: Code(s): R31.29 - Other microscopic hematuria Category: Medical Plan: The patient has a history of hematuria and has been seen by a urologist. The urology workup included orders for a CT urogram and a recommendation for cystoscopy, which have not been completed due to the patient's anxiety. The importance of this workup was stressed, strongly encouraged to proceed with the scheduled CT scan next week. Orders: Orders Lipid Panel 3 Months E78.5 - Hyperlipidemia, unspecified Alanine Aminotransferase 3 Months E78.5 - Hyperlipidemia, unspecified Aspartate Amino Transferase 3 Months E78.5 - Hyperlipidemia, unspecified Medications: New famotidine 40 mg PO DAILY 30 tabs 1RF R12 - Heartburn
== END 2025-01-17 15:16 | disposition home or self-care (01) ==
LOC: HO.HMCC 14:11
PROVIDERS: PCP Internal Medicine; Visit Provider Internal Medicine
DX: R12 Heartburn (principal); E78.5 Hyperlipidemia, unspecified; R31.29 Other microscopic hematuria

== ENCOUNTER 2025-01-25 13:06 | Outpatient (REF) | payer OTHER, SELFPAY ==
--- NOTE | ~2025-01-25 | CT_ITS ---
CLINICAL HISTORY: R31.0 - Gross hematuria CT abdomen and pelvis with and without contrast Comparison: None provided Findings: The lung bases are clear. The liver is enlarged. Within the central liver there is a 1.1 cm simple cyst. Scattered throughout both lobes are other small low-attenuation lesions with the appearance consistent with cysts. Spleen, adrenal glands, pancreas and gallbladder are unremarkable. The kidneys are normal in size and demonstrate normal cortical enhancement and thickness. No mass lesions or cysts. On urogram phrase the bilateral renal pelves and left ureter are outlined with contrast, although the majority of the right ureter is not contrast opacified. No hydronephrosis of either kidney. No evidence of hydroureter. On noncontrast images, no renal or ureteral stone. No bowel obstruction, pneumoperitoneum, or pneumatosis. Normal appendix. Urinary bladder is partially distended with contrast material. No filling defects seen. Contrast is present in the bilateral ureteral orifices and there are bilateral jets present. There is thickening of the endometrial cavity of the uterus measures up to 11 mm, thickened for a postmenopausal woman. No acute fracture. No lytic or blastic bone lesions. Minimal degenerative changes of the lumbar spine. IMPRESSION: 1. No evidence of obstructive uropathy. Normal left renal collecting system. Right ureter is not opacified with contrast predominantly, however appears patent with patent ureteral jets. Normal urinary bladder. 2. Thickened endometrial cavity, abnormal for a postmenopausal woman, measuring 11 mm. Consider gynecological consultation. This document has been electronically signed by: Cody Ponce MD on 01/26/2025 02:54:53
[2025-01-25] MEDS: iohexoL 350 MG/ML 100 ML INFUS..BTL IV (15:32)
[2025-01-25 16:55] LABS: Creatinine POC 1.4 mg/dL (0.5-1.4); GFR POC > 60
== END 2025-01-25 13:07 | disposition home or self-care (01) ==
LOC: HO.CT 13:06
PROVIDERS: PCP Internal Medicine; Visit Provider Nurse Practitioner Family
DX: R31.0 Gross hematuria (principal)
CPT/HCPCS: 74178; 82565; Q9967

== ENCOUNTER → 2025-01-25 13:08 | Outpatient (BNV) | payer OTHER, SELFPAY | PROVIDERS: PCP Internal Medicine; Visit Provider Radiology Diagnostic Radiology | DX: R31.0 Gross hematuria (principal) | CPT/HCPCS: 74178 ==